=== PATIENT | female | born 1975 | race Caucasian/White ===

== ENCOUNTER → 2017-05-23 | Outpatient (CLI) | payer OTHER ==
[~2017-05-23] MED LIST: LEVO88TA3 PO; OXYB15TA12 PO; ZOLE5INJ INJ
== END | disposition home or self-care (01) ==
LOC: C.LABPBG 14:11
PROVIDERS: ATTEND Neuromusculoskeletal Medicine & OMM
DX: R30.0 Dysuria (principal)

== ENCOUNTER → 2017-07-02 | Outpatient (CLI) | payer OTHER ==
--- NOTE | 2017-07-02 13:06 | DIAGNOSTIC IMAGING REPORT ---
CT SCAN OF THE BRAIN WITHOUT IV CONTRAST CLINICAL HISTORY: Headache. Hydrocephalus. COMPARISON STUDY: Prior CT scans of the brain, most recently dated 02/09/2016. TECHNIQUE: Axial CT scan of the brain is performed from the vertex to the skull base. IV contrast was not administered for this examination. FINDINGS: A left parietal approach ventriculostomy catheter is unchanged position. The tip of the catheter terminates in the right frontal periventricular white matter. Ventricular caliber is unchanged from previous. There is no hemorrhage, mass effect, or evidence of acute territorial ischemia by CT criteria. 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 Lopez-white matter differentiation is preserved. No extra-axial fluid collection is seen. The bony orbits are grossly intact. The visualized paranasal sinuses and the mastoid air cells are clear. No destructive calvarial lesion is identified. A left parietal bebeto hole is noted. IMPRESSION: 1. No acute intracranial abnormality. 2. A ventriculostomy catheter is unchanged in position. Ventricular caliber has not significant change from 02/09/2016. 3. Additional chronic/congenital findings as above. Electronically signed by: Wily Sánchez M.D. 07/02/2017 1:04 PM Dictated Date/Time: 07/02/2017 12:59 PM
== END | disposition home or self-care (01) ==
LOC: C.CTS 12:21
PROVIDERS: ATTEND Psychiatry & Neurology Neurology
DX: G91.9 Hydrocephalus, unspecified (principal); R51 Headache

== ENCOUNTER → 2017-10-27 | Outpatient (CLI) | payer OTHER | END | disposition home or self-care (01) | LOC: C.LABPBG 13:40 | PROVIDERS: ATTEND Family Medicine | DX: E03.9 Hypothyroidism, unspecified (principal); M81.0 Age-related osteoporosis without current pathological fracture; E55.9 Vitamin D deficiency, unspecified ==

== ENCOUNTER → 2017-11-18 | Outpatient (CLI) | payer OTHER | END | disposition home or self-care (01) | LOC: C.LABPBG 14:42 | PROVIDERS: ATTEND Family Medicine | DX: R39.9 Unspecified symptoms and signs involving the genitourinary system (principal) ==

== ENCOUNTER → 2018-03-12 | Outpatient (CLI) | payer OTHER | END | disposition home or self-care (01) | LOC: C.LABPBG 11:02 | PROVIDERS: ATTEND Family Medicine | DX: R39.9 Unspecified symptoms and signs involving the genitourinary system (principal) ==

== ENCOUNTER → 2018-06-25 | Outpatient (CLI) | payer OTHER | END | disposition home or self-care (01) | LOC: C.LABSPEC 17:13 | PROVIDERS: ATTEND Urology | DX: N31.9 Neuromuscular dysfunction of bladder, unspecified (principal); N39.0 Urinary tract infection, site not specified ==

== ENCOUNTER 2025-06-08 14:04 | Inpatient (IN) ==
--- NOTE | 2025-06-08 15:09 | XRay Report ---
XR chest 1V portable CLINICAL HISTORY: Sepsis COMPARISON STUDY: 02/17/2023 FINDINGS: Heart size and pulmonary vasculature are normal. No consolidation or pleural effusion. No p neumothorax. IMPRESSION: No acute findings. ACT 112: Negative or not required by law. Electronically signed by: Hector Humphreys M.D. 06/08/2025 3:07 PM
--- NOTE | 2025-06-08 15:10 | XRay Report ---
KUB HISTORY: constipation COMPARISON STUDY: 10/13/2019 FINDINGS: There is a catheter overlying the right abdomen with the distal aspect coiled in the low pe lvis. There is a large amount of retained stool. No bowel obstruction seen. No gross free air. IMPRESSION: Large amount of retained stool. ACT 112: Negative or not required by law. The above report was generated using voice recognition software. It may contain grammatical, syntax o r spelling errors. Electronically signed by: Hector Humphreys M.D. 06/08/2025 3:09 PM
--- NOTE | 2025-06-08 15:23 | Emergency Department Note ---
Impression & Plan Sepsis, Tachycardia, Cellulitis, Spina bifida ED Provider Note NAME: JIMMY SERNA AGE: 50 SEX: F : 1975 ARRIVES VIA: Ambulance INFORMANT: [Patient] ED PROVIDER(S): [Wily Rubio MD] CHIEF COMPLAINT: Illness HISTORY OF PRESENT ILLNESS: The patient is a 50-year-old female who presents to the ER with complaints of fever, weakness. The patient does self cath. She has spina bifida. She states that yesterday she had a slight sore throat which seems to have resolved today. Today, she had a low-grade fever at 100.5. She had some slight cough and a bit of a stuffy nose. No shortness of breath, no vomiting or diarrhea. The patient states that she was unable to self cath today. There has been no sick contacts. The patient states that she does not really have any abdominal pain but, there has been no bowel movement in several days, she is worried that she could be constipated. Of note, the patient does not ambulate. She is wheelchair-bound. PMHx/PSHx/Social Hx: See Below PHYSICAL EXAM: GENERAL: Patient is in no acute distress. HEENT: No acute trauma, normocephalic atraumatic, mucous membranes moist, no nasal congestion. NECK: No stridor, no adenopathy, no meningismus, trachea is midline. LUNGS: Crackles heard in the right lower lung, no wheezing. No respiratory distress. HEART: Tachycardic, regular rhythm, no murmurs. ABDOMEN: Soft, nontender, no peritonitis. EXTREMITIES: No cyanosis. There is some wasting of the lower extremities consistent with her nonambulatory status. There is erythema and warmth to the lateral right distal foot and toes. NEUROLOGIC: Oriented x 3, no speech slur. Excellent historian. SKIN: No jaundice, no diaphoresis. DIFFERENTIAL DIAGNOSIS: Bacteremia, sepsis, UTI, cellulitis, viral illness, pneumonia, among others. EMERGENCY DEPARTMENT PROCEDURES: MEDICAL DECISION MAKING: There is no leukocytosis or concerning anemia. There is a normal platelet count. No bandemia. No coagulopathy. No renal failure or significant electrolyte abnormality. Lactic acid level is not elevated making severe sepsis less likely. There is no liver enzyme elevation. ECG shows a sinus tachycardia, no ischemia. Cardiac enzyme testing x 1 is not consistent with acute cardiac injury. Urinalysis shows potential infection, urine culture is pending. COVID, influenza and RSV test were negative. Chest x-ray did not show findings of pneumonia. KUB does show constipation. On exam, the patient was slightly febrile, she was tachycardic. She was not hypotensive. She appeared to have a right foot cellulitis. The patient did receive IV saline for hydration. She was given IV ceftriaxone as antibiotic coverage. She was given IV Tylenol. The patient has a complex past medical history. She presents tachycardic, febrile. She certainly would meet criteria for early sepsis. I do think a hospital stay would be warranted. Currently, I believe her right foot may be the source of her fever and infection, UTI is also a consideration given the urinalysis results and self cath history. I did speak with the patient and case management, the on-call hospitalist was consulted. Prior/Outside records/notes reviewed: Today's EMS notes describing her presentation and transport to this hospital. ECG per my interpretation: Indication was tachycardia. The ECG shows a sinus tachycardia with a rate of 106. There is some nonspecific ST change. There is no ST elevation, no PVCs. The QTc is 422. Continuous Cardiac Monitoring per my interpretation: An order was placed for continuous cardiac monitoring. The monitor shows a rate of 108 with sinus tachycardia. Imaging/x-ray results per my interpretation: Chest x-ray is not show pneumonia or CHF. There is no cardiomegaly. KUB shows constipation. Chronic Medical/Social conditions affecting care: Spina bifida, wheelchair- bound. Care/Management discussed with: Case management, the on-call hospitalist. Level of care consideration(s): After review of the information above and other included data: --I believe the patient requires escalation of care to admission DISPOSITION: Admission Past Med/Surg History Problem List Spina bifida (Acute) Cellulitis (Acute) Tachycardia (Acute) Sepsis (Acute) Fecal impaction Cellulitis of right lower extremity Tinnitus Hyperlipidemia Obesity Hypertension Vitamin D deficiency Allergic rhinitis Chronic mixed headache syndrome Facet arthropathy, cervical Osteoarthritis of carpometacarpal (CMC) joint of left thumb Cervical disc disease Venous insufficiency (chronic) (peripheral) Gastroesophageal reflux disease H/O ventricular shunt Ventric shunt to circ system ventriculocaval shunt Recurrent UTI takes preventative antibiotic Depression with anxiety Back pain, chronic Hydrocephalus follows with Dr Thomas Hypothyroidism Neurogenic bladder Osteoporosis Spina bifida of lumbar region Medical History New onset headache History of COVID-19 09/2020, "developed asthma" since Covid infection per patient Asthma well controlled Seizure Single episode at age 12, caused by shunt dysfunction, no issues since Hx of thyroid nodule History of spina bifida Self-catheterizes urinary bladder every 3-4 hours on her own Cholelithiasis Surgical History Hx of bilateral cataract extraction Hx laparoscopic cholecystectomy (03/05/23) Robotic Assisted Laparoscopic Cholecystectomy(Not Applicable) - Hector Han DO, FACS History of colonoscopy Hx of spinal surgery hx spina bifida repair surgery as an infant S/P ORIF (open reduction internal fixation) fracture R ankle S/P partial thyroidectomy Family History Mother Breast cancer, Onset Age: 57 Grandmother (Maternal) Dementia Father Prostate cancer Sister Breast cancer, Onset Age: 38 Other No family history of adverse response to anesthesia Denies family history of Ovarian cancer Crohn's disease Myocardial infarction Colorectal cancer Ulcerative colitis Social History Smoking Status: Never smoker Second Hand Exposure: No; Do You Dip or Chew Tobacco: No; Hx Alcohol Use: Yes Alcohol type: wine Alcohol Intake Frequency: Monthly or Less Hx Substance Use: No Preferred Language: Upper Sorbian Communication Ability: Effective Visual Impairment: No Limitations Hearing Ability: Normal Belly Roller Required: No Beliefs That Will Affect Care: None marital status: Current Living Situation: Spouse current occupational status: employed 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) Feels Safe at Home: Yes Childhood Exposure to Second-Hand Smoke: No Diet: regular Diet Comment: regular caffeine: Yes during the past year weight has: other Dental Care, Regularly: Yes Physical Activity Frequency: 3-4 Times per Week Physical Activity Frequency Comment: [facility] Seatbelt Use: always Sunscreen Use: Yes Assistive Devices: Glasses, Scooter/Electric Scooter and Wheelchair Allergies Allergies Allergy/AdvReac Type Severity Reaction Status Date / Time Penicillins Allergy Mild RASH Verified 03/21/25 13:43 amoxicillin Allergy Unknown RASH Verified 03/21/25 13:43 Home Meds Home Medications Medication Instructions Recorded Confirmed oxymetazoline 0.05 % nasal spray 2 spray intranasal Q12H PRN 03/18/23 06/08/25 (Vicks Sinex 12-Hour) Congestion albuterol sulfate 90 mcg/actuation 1 - 2 puff inhalation DIRECTED 06/08/25 06/08/25 aerosol inhaler (Ventolin HFA) PRN shortness of breath or wheezing levothyroxine 88 mcg tablet 88 mcg PO 6XWK 06/08/25 06/08/25 levothyroxine 88 mcg tablet 176 mcg PO WK 06/08/25 06/08/25 semaglutide (weight loss) 0.5 0 mg subcut Q7D 06/08/25 06/08/25 mg/0.5 mL subcutaneous pen injector Previous Rx's Medication Instructions Recorded Leg brace repair #1 ea 08/24/21 Thumb Adductor Wrist Splint #1 ea 12/18/21 cetirizine 10 mg tablet (Zyrtec) 10 mg PO DAILY #30 tabs 03/27/23 compress.stocking,knee,reg,med #2 ea 06/06/23 Hygeine Wipes #1 ea 07/10/23 Wheelchair (Powered) #1 ea 11/14/23 cholecalciferol (vitamin D3) 10 10 mcg PO BID #180 tabs 11/24/23 mcg (400 unit) tablet ibandronate 150 mg tablet 150 mg PO MONTHLY #3 tabs 07/12/24 bupropion HCl 150 mg 24 hr tablet, 150 mg PO QAM #30 tabs 01/24/25 extended release (Wellbutrin XL) nitrofurantoin macrocrystal 50 mg 50 mg PO DAILY #30 caps 01/24/25 capsule ipratropium bromide 21 mcg (0.03 2 spray intranasal BID #30 mL 02/15/25 %) nasal spray fluticasone propionate 50 2 spray intranasal DAILY #47.4 mL 02/23/25 mcg/actuation nasal spray,suspension (Allergy Relief (fluticasone)) oxybutynin chloride 15 mg 15 mg PO QAM #90 tabs 02/28/25 tablet,extended release 24 hr fluticasone furoate 200 1 inh inhalation DAILY #60 ea 03/03/25 mcg-vilanterol 25 mcg/dose inhalation powder (Breo Ellipta) famotidine 20 mg tablet 20 mg PO BID #180 tabs 03/21/25 lisinopril 20 mg tablet 20 mg PO DAILY #90 tabs 03/21/25 pantoprazole 40 mg tablet,delayed 40 mg PO QAM #90 tabs 03/29/25 release miscellaneous medical supply 1 ea miscellaneous .COMPLEX #1 ea 05/04/25 meloxicam 15 mg tablet 15 mg PO DAILY #30 tabs 05/16/25 Results & Data (ED) Vital Signs Vital Signs - 24 hr 06/08/25 14:18 06/08/25 14:31 06/08/25 14:50 Temperature 37.7 C H Temperature Source Oral Pulse Rate 112 H 108 H Pulse Rate from SpO2 Sensor Respiratory Rate 26 H Respiratory Effort / Characteristics Non-Labored Spontaneous Respiratory Depth Normal Blood Pressure 154/108 H Blood Pressure Mean 123 Blood Pressure Position Semi-fowlers Pulse Oximetry 98 99 Oxygen Delivery Method Room Air Room Air Sepsis Recent Fever Within 48 Hours Yes Sepsis New/Unexplained Change in Mental Status N/A Sepsis Action Taken by Nursing Physician Notified 06/08/25 16:15 06/08/25 16:30 06/08/25 16:45 Temperature Temperature Source Pulse Rate 108 H 100 H Pulse Rate from SpO2 Sensor 108 H 102 H Respiratory Rate 14 21 Respiratory Effort / Characteristics Respiratory Depth Blood Pressure 164/78 H 136/94 144/77 H Blood Pressure Mean 128 103 99 Blood Pressure Position Pulse Oximetry 99 94 Oxygen Delivery Method Room Air Room Air Sepsis Recent Fever Within 48 Hours Sepsis New/Unexplained Change in Mental Status Sepsis Action Taken by Nursing 06/08/25 17:00 06/08/25 17:15 06/08/25 17:45 Temperature Temperature Source Pulse Rate 94 H 96 H 97 H Pulse Rate from SpO2 Sensor 95 H 97 H 96 H Respiratory Rate 24 17 18 Respiratory Effort / Characteristics Respiratory Depth Blood Pressure 141/78 H 151/93 H 175/92 H Blood Pressure Mean 99 112 129 Blood Pressure Position Pulse Oximetry 96 99 100 Oxygen Delivery Method Room Air Room Air Room Air Sepsis Recent Fever Within 48 Hours Sepsis New/Unexplained Change in Mental Status Sepsis Action Taken by Nursing 06/08/25 18:00 06/08/25 18:15 06/08/25 18:20 Temperature Temperature Source Pulse Rate 95 H 95 H 93 H Pulse Rate from SpO2 Sensor 95 H 95 H Respiratory Rate 18 20 Respiratory Effort / Characteristics Respiratory Depth Blood Pressure 166/86 H 158/92 H Blood Pressure Mean 112 141 Blood Pressure Position Pulse Oximetry 96 95 Oxygen Delivery Method Room Air Sepsis Recent Fever Within 48 Hours Sepsis New/Unexplained Change in Mental Status Sepsis Action Taken by Nursing 06/08/25 18:30 Temperature Temperature Source Pulse Rate 91 H Pulse Rate from SpO2 Sensor 88 Respiratory Rate 23 Respiratory Effort / Characteristics Respiratory Depth Blood Pressure 160/86 H Blood Pressure Mean 110 Blood Pressure Position Pulse Oximetry 99 Oxygen Delivery Method Room Air Sepsis Recent Fever Within 48 Hours Sepsis New/Unexplained Change in Mental Status Sepsis Action Taken by [facility] Medications Current Medication List: was personally reviewed by me Laboratory Data Attestation: I reviewed the patient's lab results. 06/08/25 15:51 06/08/25 15:51 Lab Results 06/08/25 06/08/25 06/08/25 Range/Units 14:55 15:51 16:00 WBC 7.10 (4.8-10.8) K/ul RBC 4.68 (4.20-5.40) M/uL Hgb 13.1 (12.0-16.0) g/dl Hct 39.7 (37.0-47.0) % MCV 84.8 (80.0-100.0) fL MCH 28.0 (25.0-34.0) pg MCHC 33.0 (32.0-36.0) g/dL RDW Std Deviation 42.3 (36.4-46.3) fL RDW Coeff of Real 13.5 (11.5-14.5) % Plt Count 248 (130-400) K/uL MPV 10.0 (9.4-12.4) fL Immature Gran % (Auto) 0.4 % Neut % (Auto) 80.6 % Lymph % (Auto) 9.3 % Hill % (Auto) 8.7 % Eos % (Auto) 0.4 % Baso % (Auto) 0.6 % Neut # (Auto) 5.72 (1.40-6.50) K/uL Lymph # (Auto) 0.66 L (1.20-3.40) K/uL Hill # (Auto) 0.62 H (0.11-0.59) K/uL Eos # (Auto) 0.03 (0.00-0.50) K/uL Baso # (Auto) 0.04 (0.00-0.20) K/uL Immature Gran # (Auto) 0.03 (0.01-0.20) K/uL PT 10.8 (9.0-12.0) Seconds INR 1.0 (0.9-1.1) APTT 34 H (21-31) Seconds PTT Ratio 1.3 Sodium 133 L (136-145) mmol/L Potassium 3.8 (3.5-5.1) mmol/L Chloride 102 (98-107) mmol/L Carbon Dioxide 22 (21-32) mmol/L Anion Gap 9 (3-11) BUN 13 (6-23) mg/dl Creatinine 0.58 L (0.6-1.2) mg/dl Est Cr Clr Drug Dosing 102.7 ml/min eGFR 110.18 BUN/Creatinine Ratio 22.4 H (10-20) Glucose 107 H (70-99(Fasting)) mg/dl Lactate 1.0 (0.4-2.0) mmol/L Calcium 9.0 (8.6-10.3) mg/dl Magnesium 2.1 (1.7-2.4) mg/dl Total Bilirubin 0.6 (0.2-1.0) mg/dl Direct Bilirubin 0.1 (0-0.2) mg/dl AST 27 (13-39) U/L ALT 32 (7-52) U/L Alkaline Phosphatase 98 (34-104) U/L Troponin I High Sens 9.2 (0-14) pg/ml Total Protein 7.3 (6.0-8.3) gm/dl Albumin 4.3 (3.4-5.0) gm/dl Procalcitonin 0.09 (0-0.5) ng/ml Urine Color Yellow Urine Appearance Clear (Clear) Urine pH 5.5 (4.5-7.5) Ur Specific [place] 1.015 (1.000-1.030) Urine Protein 1+ H (Negative) Urine Glucose (UA) Negative (Negative) Urine Ketones 1+ H (Negative) Urine Blood Negative (Negative) Urine Nitrite Positive A (Negative) Urine Bilirubin Negative (Negative) Urine Urobilinogen Negative (Negative) Ur Leukocyte Esterase Trace H (Negative) Urine WBC (Auto) 0-5 (0-5) /hpf Urine RBC (Auto) 0-2 (0-2) /hpf U Hyaline Cast (Auto) 0-2 (0-2) /lpf U Epithel Cells (Auto) 3-5 H (0-2) /hpf Urine Bacteria (Auto) 2+ H (None Seen) Urine Comment SARS-CoV-2 (PCR) NEGATIVE (Negative) Influenza Type A (PCR) Negative (Neg) Influenza Type B (PCR) Negative (Neg) RSV (RT-PCR) Negative (Neg) Administered Medications Discontinued Medications Sodium Chloride (Nss) 1,000 mls @ 999 mls/hr IV .Q1H1M SVETLANA Stop: 06/08/25 17:00 Last Infusion: 06/08/25 17:51 Dose: Infused Documented By: Admin: 06/08/25 16:48 Dose: 999 mls/hr Documented By: Infusion: 06/08/25 16:44 Dose: Infused Documented By: Admin: 06/08/25 15:41 Dose: 999 mls/hr Documented By: MEGHNA Acetaminophen (Ofirmev) 1,000 mg in 100 mls @ 400 mls/hr IV NOW STA Stop: 06/08/25 15:00 Last Infusion: 06/08/25 16:03 Dose: Infused Documented By: Admin: 06/08/25 15:48 Dose: 400 mls/hr Documented By: Ceftriaxone Sodium (Rocephin) 2,000 mg in 50 mls @ 100 mls/hr IV NOW STA Stop: 06/08/25 17:14 Last Infusion: 06/08/25 17:51 Dose: Infused Documented By: Admin: 06/08/25 17:16 Dose: 100 mls/hr Documented By: Imaging Data Radiologist's Impression: Chest X-Ray 06/08/25 14:46 XR chest 1V portable CLINICAL HISTORY: Sepsis COMPARISON STUDY: 02/17/2023 FINDINGS: Heart size and pulmonary vasculature are normal. No consolidation or pleural effusion. No pneumothorax. IMPRESSION: No acute findings. ACT 112: Negative or not required by law. Electronically signed by: Hector Humphreys M.D. 06/08/2025 3:07 PM KUB X-Ray 06/08/25 14:46 KUB HISTORY: constipation COMPARISON STUDY: 10/13/2019 FINDINGS: There is a catheter overlying the right abdomen with the distal aspect coiled in the low pelvis. There is a large amount of retained stool. No bowel obstruction seen. No gross free air. IMPRESSION: Large amount of retained stool. ACT 112: Negative or not required by law. The above report was generated using voice recognition software. It may contain grammatical, syntax or spelling errors. Electronically signed by: Hector Humphreys M.D. 06/08/2025 3:09 PM Discharge Plan Visit Data Chief Complaint: Illness Stated Complaint: ILLNESS ED Provider: Wily Rubio Discharge Problem: Sepsis, Tachycardia, Cellulitis, Spina bifida Patient Disposition: Admitted As Inpatient Condition: Fair Forms Stand Alone Forms: [facility], Important Visit Information Prescriptions Prescriptions: No Action (DME) Thumb Adductor Wrist Splint See Rx Instructions .Route .MEDSUPPLY Qty: 1 0RF Rx Instructions: As directed cetirizine [Zyrtec] 10 mg tablet 10 mg PO DAILY Qty: 30 0RF Patient Comments: Unable to verify med w/ patient at this date/time. (DME) compress.stocking,knee,reg,med Misc See Rx Instructions .ROUTE .MEDSUPPLY Qty: 2 0RF Rx Instructions: Medium compression 20-30mmHG; Dx: I87.2 (DME) Hygeine Wipes See Rx Instructions .Route .MEDSUPPLY Qty: 1 3RF Rx Instructions: Use as directed (DME) Wheelchair (Powered) Device See Rx Instructions .Route Qty: 1 0RF Rx Instructions: motorized wheelchair repairs. cholecalciferol (vitamin D3) 10 mcg (400 unit) tablet 10 mcg PO BID Qty: 180 3RF Patient Comments: Unable to verify med w/ patient at this date/time. nitrofurantoin macrocrystal 50 mg capsule 50 mg PO DAILY Qty: 30 5RF Patient Comments: Last filled 04/25/25 x30 day supply Rx Instructions: must administer with a meal/food bupropion HCl [Wellbutrin XL] 150 mg tablet extended release 24 hr 150 mg PO QAM Qty: 30 5RF Patient Comments: Last filled 04/26/25 x30 day supply ipratropium bromide 21 mcg (0.03 %) spray,non-aerosol 2 spray intranasal BID Qty: 30 2RF Rx Instructions: administer into each nostril fluticasone propionate [Allergy Relief (fluticasone)] 50 mcg/actuation spray,suspension 2 spray INTNAS DAILY Qty: 47.4 5RF Rx Instructions: administer into each nostril oxybutynin chloride 15 mg tablet extended release 24hr 15 mg PO QAM Qty: 90 1RF fluticasone furoate-vilanterol [Breo Ellipta] 200-25 mcg/dose blister with device 1 inh inhalation DAILY Qty: 60 5RF famotidine 20 mg tablet 20 mg PO BID Qty: 180 1RF lisinopril 20 mg tablet 20 mg PO DAILY Qty: 90 2RF pantoprazole 40 mg tablet,delayed release (DR/EC) 40 mg PO QAM Qty: 90 1RF Patient Comments: Last filled 04/26/25 x30 day supply miscellaneous medical supply [facility] 1 ea miscellaneous .COMPLEX Qty: 1 0RF Rx Instructions: Motorized wheel chair evaluate and repair meloxicam 15 mg tablet 15 mg PO DAILY Qty: 30 2RF Patient Comments: Last filled 04/26/25 x30 day supply ([facility]) Leg brace repair See Rx Instructions .Route .MEDSUPPLY Qty: 1 0RF Rx Instructions: As directed oxymetazoline [Vicks Sinex 12-Hour] 0.05 % spray,non-aerosol 2 spray intranasal Q12H PRN (Reason: Congestion) ibandronate 150 mg tablet 150 mg PO MONTHLY Qty: 3 4RF levothyroxine 88 mcg tablet 176 mcg PO WK Patient Comments: Take 176mcg (88mcg x 2) on Sundays Rx Instructions: Take 176mcg (88mcg x 2) on Sundays levothyroxine 88 mcg tablet 88 mcg PO 6XWK Patient Comments: Take 88mcg on Fri//Fri//Fri/Sat Rx Instructions: 88mcg PO Daily M,T,W,T,F,S and 176mcg Friday 1 tablet daily on M,T,W,T,F,S and 2 tablets on Friday albuterol sulfate [Ventolin HFA] 90 mcg/actuation HFA aerosol inhaler 1 - 2 puff inhalation DIRECTED PRN (Reason: shortness of breath or wheezing) Patient Comments: Unable to verify med w/ patient at this date/time. Rx Instructions: 1-2 puffs inhalation 1 puff INH every 4-6 hrs; PRN; Wegovy 0.5 mg/0.5 mL pen injector 0 mg subcut Q7D Patient Comments: Unable to verify med w/ patient at this date/time. Referrals Referrals: Hallie Lockhart DO [Primary Care Provider] - Discharge Problem: Sepsis Qualifiers: Sepsis type: sepsis due to unspecified organism Sepsis acute organ dysfunction status: without acute organ dysfunction Qualified Code(s): A41.9 - Sepsis, unspecified organism Cellulitis Qualifiers: Site of cellulitis: extremity Site of cellulitis of extremity: lower extremity Laterality: right Qualified Code(s): L03.115 - Cellulitis of right lower limb Spina bifida Qualifiers: Spinal region: unspecified Presence of hydrocephalus: unspecified hydrocephalus presence Qualified Code(s): Q05.9 - Spina bifida, unspecified
[2025-06-08] MEDS: SODIUM CHLORIDE 0.9% 1,000 ML IV SCH (15:41)
[2025-06-08] MEDS: ACETAMINOPHEN 1,000 MG/100 ML VIAL IV STA (15:48)
[2025-06-08 16:00] LABS: Influenza A virus by PCR Negative (Neg); Influenza B virus by PCR Negative (Neg); SARS CoV2 RNA(COVID-19) Ceph NEGATIVE (Negative)
[2025-06-08 16:11] LABS: Hematocrit (blood only) 39.7 % (37.0-47.0); Hemoglobin 13.1 g/dl (12.0-16.0); Immature Granulocytes # (auto) 0.03 K/uL (0.01-0.20); Immature Granulocytes % (auto) 0.4 %; Mean Corpuscular Hemoglobin 28.0 pg (25.0-34.0); Mean Corpuscular Volume 84.8 fL (80.0-100.0); Platelet Count 248 K/uL (130-400); RDW Standard Deviation 42.3 fL (36.4-46.3); Red Blood Count 4.68 M/uL (4.20-5.40); White Blood Count 7.10 K/ul (4.8-10.8)
[2025-06-08 16:21] LABS: Appearance Urine Clear (Clear); Bacteria Urine Automated 2+ (None Seen); Cast Urine Automated 0-2 /lpf (0-2); Glucose Urine UA Negative (Negative); RBC Urine Automated 0-2 /hpf (0-2); WBC Urine Automated 0-5 /hpf (0-5)
[2025-06-08 16:30] LABS: Alanine Aminotransferase 32.0 U/L (7-52); Alkaline Phosphatase 98.0 U/L (34-104); Anion Gap 9.0 (3-11); Bilirubin,Total 0.6 mg/dl (0.2-1.0); Blood Urea Nitrogen 13.0 mg/dl (6-23); Calcium 9.0 mg/dl (8.6-10.3); Carbon Dioxide 22.0 mmol/L (21-32); Chloride 102.0 mmol/L (98-107); Creatinine Clr Calc Pharmacy 102.7 ml/min; Glucose 107.0 mg/dl (70-99(Fasting)); Magnesium 2.1 mg/dl (1.7-2.4); Potassium 3.8 mmol/L (3.5-5.1); Sodium 133.0 mmol/L (136-145); Total Protein 7.3 gm/dl (6.0-8.3)
[2025-06-08 16:37] LABS: INR 1.0 (0.9-1.1); Partial Thromboplastin Time 34 Seconds (21-31); Prothrombin Time 10.8 Seconds (9.0-12.0)
[2025-06-08] MEDS: cefTRIAXone SODIUM 2,000 MG/50 ML BAG IV STA (17:16)
--- NOTE | 2025-06-08 18:01 | History & Physical Report ---
Date of Service June 08, 2025 Assessment & Plan (1) H/O ventricular shunt: (2) Recurrent UTI: (3) Hydrocephalus: (4) Neurogenic bladder: (5) Spina bifida of lumbar region: (6) Hypertension: (7) Cellulitis of right lower extremity: (8) Fecal impaction: Plan This is a 50-year-old female with spina bifida, neurogenic bladder who self catheterizes, hypertension, GERD, hypothyroidism who presents with fever. Urinalysis suggestive of UTI. She has a mild right foot cellulitis. Abdominal x-ray suggestive of fecal impaction. She presents with early sepsis. #Early sepsis She presented with fever and tachycardia No hypotension Sources could be possibly UTI versus right lower extremity cellulitis She self catheterizes and thus has a higher propensity to complicated UTI I will treat her with Bactrim Monitor urine culture and blood culture She already got IV fluid in the emergency room She is not hypotensive. Will hold off on further IV fluids #Complicated UTI Urinalysis is suggestive Patient presented with early sepsis Will treat with p.o. Bactrim #Right lower extremity cellulitis Patient says that she had an injury leading to an open fracture several years ago. The laceration was sutured but she was left with a open gap that often drains. Her right foot and leg is slightly inflamed today. Appears cellulitic. Will treat her with Bactrim that we will treat both UTI and cellulitis Check a venous duplex ultrasound to rule out DVT #Fecal impaction This was seen on KUB The patient says that she has been constipated for some time and she was unable to self catheterize which could be because of the fecal impaction We will treat with MiraLAX and Colace. May need Dulcolax suppository or enema if no success #Hypertension Blood pressure slightly elevated Resume lisinopril #Hypothyroidism Continue Synthroid VTE prophylaxis: Lovenox Full code History of Present Illness Chief Complaint: Fever and weakness Primary Care Provider: Hallie Lockhart, This is a 50-year-old female with spina bifida, wheelchair-bound, neurogenic bladder for which she self catheterizes, hypertension, GERD, hypothyroidism presents with fever and weakness today. The patient stated that she had some sore throat, cough and stuffy nose yesterday but she has issues with allergies. She also was unable to self catheterize today and so was concerned about a UTI. She denied chest pain, shortness of breath, headache. In the ER, she was noted to have a right foot redness and swelling along with mild drainage which was concerning for cellulitis. She stated that years ago, she had bumped her right pinky toe that caused an open fracture. The opening was sutured up but there remained a gap which often drains. She does not complain of any pain in the right foot because she does not have any sensation in her legs bilaterally. Visibly, she did not notice any difference either. In the ER she was noted to have a fever. She had some screening tests done that revealed unremarkable CBC and BMP, negative COVID and flu. Her urinalysis was suggestive of UTI with positive nitrites trace leuk esterase, no WBCs with 2+ bacteria. Her chest x-ray was negative. Her KUB showed findings suggestive of fecal impaction/constipation. She is being admitted for early sepsis and concern for UTI, right lower extremity cellulitis Allergies Allergy/AdvReac Type Severity Reaction Status Date / Time Penicillins Allergy Mild RASH Verified 03/21/25 13:43 amoxicillin Allergy Unknown RASH Verified 03/21/25 13:43 Home Medications Medication Instructions Recorded Confirmed Type Leg brace repair #1 ea 08/24/21 03/21/25 Rx Thumb Adductor Wrist Splint #1 ea 12/18/21 03/21/25 Rx oxymetazoline 0.05 % nasal spray 2 spray intranasal Q12H PRN 03/18/23 03/21/25 History (Vicks Sinex 12-Hour) cetirizine 10 mg tablet (Zyrtec) 10 mg PO DAILY #30 tabs 03/27/23 03/21/25 Rx compress.stocking,knee,reg,med #2 ea 06/06/23 03/21/25 Rx Hygeine Wipes #1 ea 07/10/23 03/21/25 Rx Wheelchair (Powered) #1 ea 11/14/23 03/21/25 Rx albuterol sulfate 90 mcg/actuation See Rx Instructions inhalation 11/19/23 03/21/25 Rx aerosol inhaler (Ventolin HFA) .COMPLEX PRN shortness of breath or wheezing #18 grams cholecalciferol (vitamin D3) 10 10 mcg PO BID #180 tabs 11/24/23 03/21/25 Rx mcg (400 unit) tablet ibandronate 150 mg tablet 150 mg PO MONTHLY #3 tabs 07/12/24 06/08/25 Rx bupropion HCl 150 mg 24 hr tablet, 150 mg PO QAM #30 tabs 01/24/25 03/21/25 Rx extended release (Wellbutrin XL) nitrofurantoin macrocrystal 50 mg 50 mg PO DAILY #30 caps 01/24/25 03/21/25 Rx capsule ipratropium bromide 21 mcg (0.03 2 spray intranasal BID #30 mL 02/15/25 03/21/25 Rx %) nasal spray fluticasone propionate 50 2 spray intranasal DAILY #47.4 mL 02/23/25 06/08/25 Rx mcg/actuation nasal spray,suspension (Allergy Relief (fluticasone)) oxybutynin chloride 15 mg 15 mg PO QAM #90 tabs 02/28/25 06/08/25 Rx tablet,extended release 24 hr fluticasone furoate 200 1 inh inhalation DAILY #60 ea 03/03/25 03/21/25 Rx mcg-vilanterol 25 mcg/dose inhalation powder (Breo Ellipta) famotidine 20 mg tablet 20 mg PO BID #180 tabs 03/21/25 06/08/25 Rx lisinopril 20 mg tablet 20 mg PO DAILY #90 tabs 03/21/25 06/08/25 Rx pantoprazole 40 mg tablet,delayed 40 mg PO QAM #90 tabs 03/29/25 Rx release semaglutide (weight loss) 0.5 0.5 mg (0.5 mL) subcut Q7D 4 weeks 03/31/25 Rx mg/0.5 mL subcutaneous pen injector #2 mL miscellaneous medical supply 1 ea miscellaneous .COMPLEX #1 ea 05/04/25 Rx meloxicam 15 mg tablet 15 mg PO DAILY #30 tabs 05/16/25 Rx levothyroxine 88 mcg tablet 88 mcg PO 6XWK 06/08/25 06/08/25 History levothyroxine 88 mcg tablet 176 mcg PO WK 06/08/25 06/08/25 History Past Med/Surg History Problem List (Updated 06/08/25 @ 18:06 by Jahaira Kirk MD) Fecal impaction Cellulitis of right lower extremity Tinnitus Hyperlipidemia Obesity Hypertension Vitamin D deficiency Allergic rhinitis Chronic mixed headache syndrome Facet arthropathy, cervical Osteoarthritis of carpometacarpal (CMC) joint of left thumb Cervical disc disease Venous insufficiency (chronic) (peripheral) Gastroesophageal reflux disease H/O ventricular shunt Ventric shunt to circ system ventriculocaval shunt Recurrent UTI takes preventative antibiotic Depression with anxiety Back pain, chronic Hydrocephalus follows with Dr Thomas Hypothyroidism Neurogenic bladder Osteoporosis Spina bifida of lumbar region Medical History New onset headache History of COVID-19 09/2020, "developed asthma" since Covid infection per patient Asthma well controlled Seizure Single episode at age 12, caused by shunt dysfunction, no issues since Hx of thyroid nodule History of spina bifida Self-catheterizes urinary bladder every 3-4 hours on her own Cholelithiasis Surgical History Hx of bilateral cataract extraction Hx laparoscopic cholecystectomy (03/05/23) Robotic Assisted Laparoscopic Cholecystectomy(Not Applicable) - Hector Han DO, FACS History of colonoscopy Hx of spinal surgery hx spina bifida repair surgery as an S/P ORIF (open reduction internal fixation) fracture R ankle S/P partial thyroidectomy Family History Mother Breast cancer, Onset Age: 57 Grandmother (Maternal) Dementia Father Prostate cancer Sister Breast cancer, Onset Age: 38 Other No family history of adverse response to anesthesia Denies family history of Ovarian cancer Crohn's disease Myocardial infarction Colorectal cancer Ulcerative colitis Social History Smoking Status: Never smoker Second Hand Exposure: No; Do You Dip or Chew Tobacco: No; Hx Alcohol Use: Yes Alcohol type: wine Alcohol Intake Frequency: Monthly or Less Hx Substance Use: No Preferred Language: Mosotho Communication Ability: Effective Visual Impairment: No Limitations Hearing Ability: Normal Carpenter Mine Required: No Beliefs That Will Affect Care: None marital status: Current Living Situation: Spouse current occupational status: employed 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 Pleasant and smiling Heart: S1, S2/regular rate and rhythm, no murmur rubs or gallops Lungs: Clear to auscultation bilaterally. Normal effort Abdomen: Soft/nontender/nondistended. No hepatosplenomegaly Extremities: No clubbing/cyanosis. Her legs show signs of contractures. Her right foot and calf is slightly red. There is of very small opening in the right pinky toe with some drainage that does not appear grossly purulent. Behavior: Appropriate, cooperative Results & Data Results & Data Vital Signs (Past 12 Hours) Vital Signs Temp Pulse Resp BP Pulse Ox O2 Del Method 06/08/25 17:45 97 H 18 175/92 H 100 Room Air 06/08/25 17:15 96 H 17 151/93 H 99 Room Air 06/08/25 17:00 94 H 24 141/78 H 96 Room Air 06/08/25 16:45 100 H 21 144/77 H 94 Room Air 06/08/25 16:30 136/94 06/08/25 16:15 108 H 14 164/78 H 99 Room Air 06/08/25 14:50 99 Room Air 06/08/25 14:31 108 H 06/08/25 14:18 37.7 C H 112 H 26 H 154/108 H 98 Room Air Laboratory Results Abnormal lab results 06/08/25 06/08/25 Range/Units 15:51 16:00 Lymph # (Auto) 0.66 L (1.20-3.40) K/uL Henry # (Auto) 0.62 H (0.11-0.59) K/uL APTT 34 H (21-31) Seconds Sodium 133 L (136-145) mmol/L Creatinine 0.58 L (0.6-1.2) mg/dl BUN/Creatinine Ratio 22.4 H (10-20) Glucose 107 H (70-99(Fasting)) mg/dl Urine Protein 1+ H (Negative) Urine Ketones 1+ H (Negative) Urine Nitrite Positive A (Negative) Ur Leukocyte Esterase Trace H (Negative) U Epithel Cells (Auto) 3-5 H (0-2) /hpf Urine Bacteria (Auto) 2+ H (None Seen) Diagnostic Findings Chest X-Ray 06/08/25 14:46 XR chest 1V portable CLINICAL HISTORY: Sepsis COMPARISON STUDY: 02/17/2023 FINDINGS: Heart size and pulmonary vasculature are normal. No consolidation or pleural effusion. No pneumothorax. IMPRESSION: No acute findings. ACT 112: Negative or not required by law. Electronically signed by: Hector Humphreys M.D. 06/08/2025 3:07 PM KUB X-Ray 06/08/25 14:46 KUB HISTORY: constipation COMPARISON STUDY: 10/13/2019 FINDINGS: There is a catheter overlying the right abdomen with the distal aspect coiled in the low pelvis. There is a large amount of retained stool. No bowel obstruction seen. No gross free air. IMPRESSION: Large amount of retained stool. ACT 112: Negative or not required by law. The above report was generated using voice recognition software. It may contain grammatical, syntax or spelling errors. Electronically signed by: Hector Humphreys M.D. 06/08/2025 3:09 PM PG Care Time/CCT Total # of Minutes Spent Total Time Spent with Patient: Total time spent is greater than 50% in coordination of care (as documented) at patient's floor/unit and/or counseling patient: Coding Level of Care Code 89854 INT INP/OBS CARE 2/55MIN Diagnoses H/O ventricular shunt Recurrent UTI N39.0 Hydrocephalus G91.9 Neurogenic bladder N31.9 Spina bifida of lumbar region with hydrocephalus Q05.2 Presence of hydrocephalus: with hydrocephalus Hypertension I10 Cellulitis of right lower extremity L03.115 Fecal impaction K56.41 (5) Spina bifida of lumbar region Presence of hydrocephalus: with hydrocephalus Qualified Code(s): Q05.2 - Lumbar spina bifida with hydrocephalus
--- NOTE | 2025-06-08 19:52 | Ultrasound Report ---
Clinical History: Redness and swelling Technique: Venous ultrasound evaluation was performed utilizing grayscale, color Doppler and wave form evaluation. Images were also obtained with and without compression Findings: The right common femoral, superficial femoral, popliteal, and visualized calf veins demonstrate normal anechoic lumens with full compressibility. Normal flow is seen on color Doppler images. Expected waveforms were produced with augmentation maneuvers Impression: No evidence of right leg deep venous thrombosis Electronically signed by Cruz Hoyos 06-08-2025 7:52 PM
[2025-06-08] MEDS ORDERED: ONDANSETRON INJ 2 MG/ML 2 ML VIAL IV PRN (21:25)
[2025-06-08] MEDS ORDERED: Nursing to Pharmacy Communication SCH (22:15)
[2025-06-08] MEDS: DOCUSATE SODIUM 100 MG CAP PO SCH (22:32)
[2025-06-08] MEDS: SULFAMETHOXAZOLE/TRIMETHOPRIM DS 800/160MG TAB PO SCH (22:32)
[2025-06-08] MEDS: FAMOTIDINE 20 MG TAB PO SCH (22:32)
[2025-06-08] MEDS: POLYETHYLENE (MIRALAX) 17 GM PACK PO SCH (22:32)
[2025-06-08] MEDS: ACETAMINOPHEN 325 MG TAB PO PRN (22:47)
[2025-06-09] MEDS: LEVOTHYROXINE SODIUM 88 MCG TABLET PO SCH (06:09)
[2025-06-09 06:53] LABS: Hematocrit (blood only) 33.9 % (37.0-47.0); Hemoglobin 11.5 g/dl (12.0-16.0); Mean Corpuscular Hemoglobin 28.9 pg (25.0-34.0); Mean Corpuscular Volume 85.2 fL (80.0-100.0); Platelet Count 209 K/uL (130-400); RDW Standard Deviation 42.4 fL (36.4-46.3); Red Blood Count 3.98 M/uL (4.20-5.40); White Blood Count 5.91 K/ul (4.8-10.8)
[2025-06-09 07:38] LABS: Anion Gap 7 (3-11); Blood Urea Nitrogen 12 mg/dl (6-23); Calcium 7.9 mg/dl (8.6-10.3); Carbon Dioxide 20 mmol/L (21-32); Chloride 108 mmol/L (98-107); Creatinine Clr Calc Pharmacy 113.9 ml/min; Glucose 104 mg/dl (70-99(Fasting)); Sodium 135 mmol/L (136-145)
[2025-06-09] MEDS: ENOXAPARIN INJ 40 MG/0.4 ML SYR SQ SCH (08:44)
--- NOTE | 2025-06-09 11:33 | Fluoroscopy Report ---
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 Patient wa s positioned prone on the fluoroscopy table and timeout was performed. The low back was prepped and d raped in standard sterile fashion. 1% lidocaine was used for local anesthesia. Under intermittent flu oroscopic guidance, a 22-gauge spinal needle was advanced to the spinal canal at L3-4. Inner stylette was removed. No CSF was obtained despite multiple repositionings of the needle. The patient was unco mfortable on the fluoroscopy table and did not consent to another attempt. Needle was removed. Hemost asis was obtained with manual compression. Sterile dressing was applied. IMPRESSION: Unsuccessful attempted lumbar puncture at L3-4. ACT 112: Negative or not required by law. Electronically signed by: Hector Humphreys M.D. 06/09/2025 11:31 AM
--- NOTE | 2025-06-09 13:31 | Hospitalist Progress Note ---
Date of Service June 09, 2025 Assessment & Plan (1) H/O ventricular shunt: (2) Recurrent UTI: (3) Hydrocephalus: (4) Neurogenic bladder: (5) Spina bifida of lumbar region: (6) Hypertension: (7) Cellulitis of right lower extremity: (8) Fecal impaction: Plan This is a 50-year-old female with spina bifida, neurogenic bladder who self catheterizes, hypertension, GERD, hypothyroidism who presents with fever. Urinalysis suggestive of UTI. She has a mild right foot cellulitis. Abdominal x-ray suggestive of fecal impaction. She presents with early sepsis. #Early sepsis She presented with fever and tachycardia No hypotension Sources could be possibly UTI versus right lower extremity cellulitis versus BUDDHIST MONK shunt infection She self catheterizes and thus has a higher propensity to complicated UTI I had started her on Bactrim that will treat both UTI and right lower extremity cellulitis However she continued to spike fevers and remained tachycardic Urine culture growing Klebsiella, sensitivities pending To explore the possibility of a BUDDHIST MONK shunt infection, CT head and CT abdomen were ordered. Pending. LP was attempted once. Another LP will be attempted later today. Consulted infectious disease I agree with broadening antibiotic coverage per infectious disease but would hold off until he is CSF obtained #Complicated UTI Urinalysis is suggestive Patient presented with early sepsis Will treat with p.o. Bactrim Urine culture growing Klebsiella #Right lower extremity cellulitis Patient says that she had an injury leading to an open fracture several years ago. The laceration was sutured but she was left with a open gap that often drains. Her right foot and leg is slightly inflamed today. Appears cellulitic. Started her on Bactrim that we will treat both UTI and cellulitis DVT ruled out #Fecal impaction This was seen on KUB The patient says that she has been constipated for some time and she was unable to self catheterize which could be because of the fecal impaction We will treat with MiraLAX and Colace. May need Dulcolax suppository or enema if no success Patient says that she had a bowel movement last night but does not believe she evacuated enough. Advised her to keep taking laxatives #Hypertension Resume lisinopril #Hypothyroidism Continue Synthroid VTE prophylaxis: Lovenox Full code Admission and Anticipated Discharge Date Admission Date: June 08, 2025 Subjective Patient has continued to spike fevers overnight despite being on p.o. Bactrim. She is also tachycardic. Possibility of BUDDHIST MONK shunt infection entertained. Patient denies any abdominal pain. CT head and CT abdomen ordered. LP ordered for CSF culture. LP was attempted, dry tap. She declined a second attempt initially. Upon speaking to me, she is now agreeable to a second attempt of lumbar puncture by IR Review of Systems Review of Systems: All systems reviewed & are unremarkable except as noted in Subjective Physical Exam Physical Exam: General: Awake, conversant. Pleasant and smiling Heart: S1, S2/regular rate and rhythm, no murmur rubs or gallops Lungs: Clear to auscultation bilaterally. Normal effort Abdomen: Soft/nontender/nondistended. No hepatosplenomegaly Extremities: No clubbing/cyanosis. Her legs show signs of contractures. Her right foot and calf is slightly red. There is of very small opening in the righ t pinky toe with some drainage that does not appear grossly purulent. Behavior: Appropriate, cooperative Results & Data Results & Data Vital Signs (Past 12 Hours) Vital Signs Temp Pulse Resp BP Pulse Ox O2 Del Method 06/09/25 09:31 Room Air 06/09/25 07:05 38.1 C H 109 H 16 129/80 99 Room Air 06/09/25 04:18 39.2 C H Laboratory Results Abnormal lab results 06/08/25 06/08/25 06/09/25 Range/Units 15:51 16:00 06:28 RBC 3.98 L (4.20-5.40) M/uL Hgb 11.5 L (12.0-16.0) g/dl Hct 33.9 L (37.0-47.0) % Lymph # (Auto) 0.66 L (1.20-3.40) K/uL Winn # (Auto) 0.62 H (0.11-0.59) K/uL APTT 34 H (21-31) Seconds Sodium 133 L 135 L (136-145) mmol/L Potassium (3.5-5.1) mmol/L Chloride 108 H (98-107) mmol/L Carbon Dioxide 20 L (21-32) mmol/L Creatinine 0.58 L 0.53 L (0.6-1.2) mg/dl BUN/Creatinine Ratio 22.4 H 22.6 H (10-20) Glucose 107 H 104 H (70-99(Fasting)) mg/dl Calcium 7.9 L (8.6-10.3) mg/dl Urine Protein 1+ H (Negative) Urine Ketones 1+ H (Negative) Urine Nitrite Positive A (Negative) Ur Leukocyte Esterase Trace H (Negative) U Epithel Cells (Auto) 3-5 H (0-2) /hpf Urine Bacteria (Auto) 2+ H (None Seen) 06/09/25 Range/Units 08:50 RBC (4.20-5.40) M/uL Hgb (12.0-16.0) g/dl Hct (37.0-47.0) % Lymph # (Auto) (1.20-3.40) K/uL Winn # (Auto) (0.11-0.59) K/uL APTT (21-31) Seconds Sodium (136-145) mmol/L Potassium 3.3 L (3.5-5.1) mmol/L Chloride (98-107) mmol/L Carbon Dioxide (21-32) mmol/L Creatinine (0.6-1.2) mg/dl BUN/Creatinine Ratio (10-20) Glucose (70-99(Fasting)) mg/dl Calcium (8.6-10.3) mg/dl Urine Protein (Negative) Urine Ketones (Negative) Urine Nitrite (Negative) Ur Leukocyte Esterase (Negative) U Epithel Cells (Auto) (0-2) /hpf Urine Bacteria (Auto) (None Seen) Diagnostic Findings Chest X-Ray 06/08/25 14:46 XR chest 1V portable CLINICAL HISTORY: Sepsis COMPARISON STUDY: 02/17/2023 FINDINGS: Heart size and pulmonary vasculature are normal. No consolidation or pleural effusion. No pneumothorax. IMPRESSION: No acute findings. ACT 112: Negative or not required by law. Electronically signed by: Hector Humphreys M.D. 06/08/2025 3:07 PM KUB X-Ray 06/08/25 14:46 KUB HISTORY: constipation COMPARISON STUDY: 10/13/2019 FINDINGS: There is a catheter overlying the right abdomen with the distal aspect coiled in the low pelvis. There is a large amount of retained stool. No bowel obstruction seen. No gross free air. IMPRESSION: Large amount of retained stool. ACT 112: Negative or not required by law. The above report was generated using voice recognition software. It may contain grammatical, syntax or spelling errors. Electronically signed by: Hector Humphreys M.D. 06/08/2025 3:09 PM Venous Doppler Study 06/08/25 17:52 Clinical History: Redness and swelling Technique: Venous ultrasound evaluation was performed utilizing grayscale, color Doppler and wave form evaluation. Images were also obtained with and without compression Findings: The right common femoral, superficial femoral, popliteal, and visualized calf veins demonstrate normal anechoic lumens with full compressibility. Normal flow is seen on color Doppler images. Expected waveforms were produced with augmentation maneuvers Impression: No evidence of right leg deep venous thrombosis Electronically signed by Cruz Hoyos 06-08-2025 7:52 PM Lumbar Puncture 06/09/25 08:59 IR lumbar puncture diagnostic CLINICAL HISTORY: fever, Pt has BUDDHIST MONK shunt Fluoroscopy time: 10 seconds COMPARISON STUDY: Lumbar spine CT of 02/20/2024 Technique: After the procedure was discussed and questions answered, consent was obtained. Patient was positioned prone on the fluoroscopy table and timeout was performed. The low back was prepped and draped in standard sterile fashion. 1% lidocaine was used for local anesthesia. Under intermittent fluoroscopic guidance, a 22-gauge spinal needle was advanced to the spinal canal at L3-4. Inner stylette was removed. No CSF was obtained despite multiple repositionings of the needle. The patient was uncomfortable on the fluoroscopy table and did not consent to another attempt. Needle was removed. Hemostasis was obtained with manual compression. Sterile dressing was applied. IMPRESSION: Unsuccessful attempted lumbar puncture at L3-4. ACT 112: Negative or not required by law. Electronically signed by: Hector Humphreys M.D. 06/09/2025 11:31 AM PG Care Time/CCT Total # of Minutes Spent Total Time Spent with Patient: Total time spent is greater than 50% in coordination of care (as documented) at patient's floor/unit and/or counseling patient: Coding Level of Care Code 25784 SUB INP/OBS CARE 2/35MIN Diagnoses H/O ventricular shunt Recurrent UTI N39.0 Hydrocephalus G91.9 Neurogenic bladder N31.9 Spina bifida of lumbar region with hydrocephalus Q05.2 Presence of hydrocephalus: with hydrocephalus Hypertension I10 Cellulitis of right lower extremity L03.115 Fecal impaction K56.41 (5) Spina bifida of lumbar region Presence of hydrocephalus: with hydrocephalus Qualified Code(s): Q05.2 - Lumbar spina bifida with hydrocephalus
--- NOTE | 2025-06-09 14:06 | Infectious Disease Consult ---
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 She reported some sore throat, cough, stuffy nose the day prior but does have issues with allergies. Was unable to self catheterize on day of presentation, so was concerned about a UTI. Denied shortness of breath, abd pain. On presentation, T 37.7, HR 112, BP 154/108, RR 26, 98% on room air. Was noted to have R foot redness, swelling, mild drainage. Labs with WBC 7.1, Cr 0.58, normal lactate. UA with 0-5 WBCs, 2+ bacteria. COVID-19/flu/RSV negative. CXR with no acute findings. KUB XR with large amt of retained stool. RLE venous doppler with no DVT. Was given ceftriaxone 2 g IV, then transitioned to TMP/SMX on admission to treat possible UTI and RLE cellulitis. Pt with persistent fevers overnight. Discussion: Unclear source of persistent fevers. Does have a urine culture growing Kleb pn eumo in the setting of self catheterization--could represent UTI vs colonization. Also with reported RLE cellulitis. Has COMPANY CONTROLLER shunt, but no complaints of headache or abdominal pain, awaiting LP. Will plan to broaden antibiotics pending blood cultures, Kleb pneumo sensitivity, CSF studies. Noting that pt has persistent fevers despite a dose of ceftriaxone last night, will broaden to ertapenem for now. Recommendations: -Agree with CT A/P with contrast--eval for upper urinary tract infection, peritonitis -Awaiting LP for cell counts, gram stain, culture -After LP, would stop TMP/SMX and start vancomycin dosed per pharmacy and ertapenem 1 g IV q24h Will continue to follow Consultation Information This patient recommendation is based on a telemedicine consult request which was completed asynchronously through chart review and information provided by the primary physician. The patient was not seen or examined today. The evaluation is consultative in nature and all patient care and treatment decisions can either be accepted or rejected by the patient's primary hospital-based treating physician using their own independent medical judgment for their patient. Director Zone contact information: Please call [facility] . (Phone Number For Physician Use Only) Time Spent Reviewing Chart: 31+ minutes History of Present Illness Reason for Consultation: Fever Attending Physician: Jahaira Kirk MD History of Present Illness An e-consult was done due to lack of telepresenter availability. 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 She reported some sore throat, cough, stuffy nose the day prior but does have issues with allergies. Was unable to self catheterize on day of presentation, so was concerned about a UTI. Denied shortness of breath, abd pain. On presentation, T 37.7, HR 112, BP 154/108, RR 26, 98% on room air. Was noted to have R foot redness, swelling, mild drainage. Labs with WBC 7.1, Cr 0.58, normal lactate. UA with 0-5 WBCs, 2+ bacteria. COVID-19/flu/RSV negative. CXR with no acute findings. KUB XR with large amt of retained stool. RLE venous doppler with no DVT. Was given ceftriaxone 2 g IV, then transitioned to TMP/SMX on admission to treat possible UTI and RLE cellulitis. Pt with persistent fevers overnight. Allergies Allergy/AdvReac Type Severity Reaction Status Date / Time Penicillins Allergy Mild RASH Verified 03/21/25 13:43 amoxicillin Allergy Unknown RASH Verified 03/21/25 13:43 Home Medications Medication Instructions Recorded Confirmed Type Leg brace repair #1 ea 08/24/21 03/21/25 Rx Thumb Adductor Wrist Splint #1 ea 12/18/21 03/21/25 Rx oxymetazoline 0.05 % nasal spray 2 spray intranasal Q12H PRN 03/18/23 06/08/25 History (Vicks Sinex 12-Hour) Congestion cetirizine 10 mg tablet (Zyrtec) 10 mg PO DAILY #30 tabs 03/27/23 06/08/25 Rx compress.stocking,knee,reg,med #2 ea 06/06/23 03/21/25 Rx Hygeine Wipes #1 ea 07/10/23 03/21/25 Rx Wheelchair (Powered) #1 ea 11/14/23 03/21/25 Rx cholecalciferol (vitamin D3) 10 10 mcg PO BID #180 tabs 11/24/23 06/08/25 Rx mcg (400 unit) tablet ibandronate 150 mg tablet 150 mg PO MONTHLY #3 tabs 07/12/24 06/08/25 Rx bupropion HCl 150 mg 24 hr tablet, 150 mg PO QAM #30 tabs 01/24/25 06/08/25 Rx extended release (Wellbutrin XL) nitrofurantoin macrocrystal 50 mg 50 mg PO DAILY #30 caps 01/24/25 06/08/25 Rx capsule ipratropium bromide 21 mcg (0.03 2 spray intranasal BID #30 mL 02/15/25 06/08/25 Rx %) nasal spray fluticasone propionate 50 2 spray intranasal DAILY #47.4 mL 02/23/25 06/08/25 Rx mcg/actuation nasal spray,suspension (Allergy Relief (fluticasone)) oxybutynin chloride 15 mg 15 mg PO QAM #90 tabs 02/28/25 06/08/25 Rx tablet,extended release 24 hr fluticasone furoate 200 1 inh inhalation DAILY #60 ea 03/03/25 06/08/25 Rx mcg-vilanterol 25 mcg/dose inhalation powder (Breo Ellipta) famotidine 20 mg tablet 20 mg PO BID #180 tabs 03/21/25 06/08/25 Rx lisinopril 20 mg tablet 20 mg PO DAILY #90 tabs 03/21/25 06/08/25 Rx pantoprazole 40 mg tablet,delayed 40 mg PO QAM #90 tabs 03/29/25 06/08/25 Rx release miscellaneous medical supply 1 ea miscellaneous .COMPLEX #1 ea 05/04/25 Rx meloxicam 15 mg tablet 15 mg PO DAILY #30 tabs 05/16/25 06/08/25 Rx albuterol sulfate 90 mcg/actuation 1 - 2 puff inhalation DIRECTED 06/08/25 06/08/25 History aerosol inhaler (Ventolin HFA) PRN shortness of breath or wheezing levothyroxine 88 mcg tablet 88 mcg PO [id number] 06/08/25 06/08/25 History levothyroxine 88 mcg tablet 176 mcg PO WK 06/08/25 06/08/25 History semaglutide (weight loss) 0.5 0 mg subcut Q7D 06/08/25 06/08/25 History mg/0.5 mL subcutaneous pen injector Patient History Medical History New onset headache History of COVID-19 09/2020, "developed asthma" since Covid infection per patient Asthma well controlled Seizure Single episode at age 12, caused by shunt dysfunction, no issues since Hx of thyroid nodule History of spina bifida Self-catheterizes urinary bladder every 3-4 hours on her own Cholelithiasis Surgical History Hx of bilateral cataract extraction Hx laparoscopic cholecystectomy (03/05/23) Robotic Assisted Laparoscopic Cholecystectomy(Not Applicable) - Hector Han DO, FACS History of colonoscopy Hx of spinal surgery hx spina bifida repair surgery as an S/P ORIF (open reduction internal fixation) fracture R ankle S/P partial thyroidectomy Family History Mother Breast cancer, Onset Age: 57 Grandmother (Maternal) Dementia Father Prostate cancer Sister Breast cancer, Onset Age: 38 Other No family history of adverse response to anesthesia Denies family history of Ovarian cancer Crohn's disease Myocardial infarction Colorectal cancer Ulcerative colitis Social History Smoking Status: Never smoker Second Hand Exposure: No; Do You Dip or Chew Tobacco: No; Hx Alcohol Use: Yes Alcohol type: wine Alcohol Intake Frequency: Monthly or Less Hx Substance Use: No Preferred Language: Estonian Communication Ability: Effective Visual Impairment: No Limitations Hearing Ability: Normal [place] Firer Required: No Beliefs That Will Affect Care: None marital status: Current Living Situation: Spouse current occupational status: employed 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) Other Information That Helps Us Care for You: No Feels Safe at Home: Yes Safety Concerns: Feels Safe At This Time Childhood Exposure to Second-Hand Smoke: No Diet: regular Diet Comment: regular caffeine: Yes during the past year weight has: other Dental Care, Regularly: Yes Physical Activity Frequency: 3-4 Times per Week Physical Activity Frequency Comment: [facility] Seatbelt Use: always Sunscreen Use: Yes Assistive Devices: Wheelchair Results & Data Vital Signs (Past 12 Hours) Vital Signs Temp Pulse Resp BP Pulse Ox O2 Del Method 06/09/25 09:31 Room Air 06/09/25 07:05 38.1 C H 109 H 16 129/80 99 Room Air 06/09/25 04:18 39.2 C H Laboratory Results Short CBC 06/08/25 06/09/25 Range/Units 15:51 06:28 WBC 7.10 5.91 (4.8-10.8) K/ul Hgb 13.1 11.5 L (12.0-16.0) g/dl Hct 39.7 33.9 L (37.0-47.0) % Plt Count 248 209 (130-400) K/uL BMP 06/08/25 06/09/25 06/09/25 15:51 06:28 08:50 Sodium 133 L 135 L Potassium 3.8 TNP 3.3 L Chloride 102 108 H Carbon Dioxide 22 20 L BUN 13 12 Creatinine 0.58 L 0.53 L Glucose 107 H 104 H Calcium 9.0 7.9 L Liver Function 06/08/25 Range/Units 15:51 Total Bilirubin 0.6 (0.2-1.0) mg/dl Direct Bilirubin 0.1 (0-0.2) mg/dl AST 27 (13-39) U/L ALT 32 (7-52) U/L Alkaline Phosphatase 98 (34-104) U/L Albumin 4.3 (3.4-5.0) gm/dl Urine 06/08/25 Range/Units 16:00 Urine Color Yellow Urine Appearance Clear (Clear) Urine pH 5.5 (4.5-7.5) Ur Specific [place] 1.015 (1.000-1.030) Urine Protein 1+ H (Negative) Urine Glucose (UA) Negative (Negative) Diagnostic Findings Chest X-Ray 06/08/25 14:46 XR chest 1V portable CLINICAL HISTORY: Sepsis COMPARISON STUDY: 02/17/2023 FINDINGS: Heart size and pulmonary vasculature are normal. No consolidation or pleural effusion. No pneumothorax. IMPRESSION: No acute findings. ACT 112: Negative or not required by law. Electronically signed by: Hector Humphreys M.D. 06/08/2025 3:07 PM KUB X-Ray 06/08/25 14:46 KUB HISTORY: constipation COMPARISON STUDY: 10/13/2019 FINDINGS: There is a catheter overlying the right abdomen with the distal aspect coiled in the low pelvis. There is a large amount of retained stool. No bowel obstruction seen. No gross free air. IMPRESSION: Large amount of retained stool. ACT 112: Negative or not required by law. The above report was generated using voice recognition software. It may contain grammatical, syntax or spelling errors. Electronically signed by: Hector Humphreys M.D. 06/08/2025 3:09 PM Venous Doppler Study 06/08/25 17:52 Clinical History: Redness and swelling Technique: Venous ultrasound evaluation was performed utilizing grayscale, color Doppler and wave form evaluation. Images were also obtained with and without compression Findings: The right common femoral, superficial femoral, popliteal, and visualized calf veins demonstrate normal anechoic lumens with full compressibility. Normal flow is seen on color Doppler images. Expected waveforms were produced with augmentation maneuvers Impression: No evidence of right leg deep venous thrombosis Electronically signed by Cruz Hoyos 06-08-2025 7:52 PM Lumbar Puncture 06/09/25 08:59 IR lumbar puncture diagnostic CLINICAL HISTORY: fever, Pt has COMPANY CONTROLLER shunt Fluoroscopy time: 10 seconds COMPARISON STUDY: Lumbar spine CT of 02/20/2024 Technique: After the procedure was discussed and questions answered, consent was obtained. Patient was positioned prone on the fluoroscopy table and timeout was performed. The low back was prepped and draped in standard sterile fashion. 1% lidocaine was used for local anesthesia. Under intermittent fluoroscopic guidance, a 22-gauge spinal needle was advanced to the spinal canal at L3-4. Inner stylette was removed. No CSF was obtained despite multiple repositionings of the needle. The patient was uncomfortable on the fluoroscopy table and did not consent to another attempt. Needle was removed. Hemostasis was obtained with manual compression. Sterile dressing was applied. IMPRESSION: Unsuccessful attempted lumbar puncture at L3-4. ACT 112: Negative or not required by law. Electronically signed by: Hector Humphreys M.D. 06/09/2025 11:31 AM Medications Administered Current Inpatient Medications Acetaminophen (Acetaminophen 325 Mg Tab) 650 mg PO Q4H PRN PRN Reason: pain/fever Stop: 07/08/25 21:24 Last Admin: 06/09/25 08:43 Dose: 650 mg Docusate Sodium (Docusate Sodium 100 Mg Cap) 100 mg PO BID [facility] Stop: 07/08/25 21:24 Last Admin: 06/09/25 08:43 Dose: Not Given Enoxaparin Sodium (Enoxaparin Inj 40 Mg/0.4 Ml Syr) 40 mg SQ QAM [facility] Stop: 07/09/25 08:59 Last Admin: 06/09/25 08:44 Dose: 40 mg Famotidine (Famotidine 20 Mg Tab) 20 mg PO BID [facility] Stop: 07/08/25 22:14 Last Admin: 06/09/25 08:43 Dose: 20 mg Guaifenesin (Guaifenesin Sugar Free 100 Mg/5 Ml Udc) 100 mg PO Q6H PRN PRN Reason: Cough Stop: 07/08/25 21:24 Last Admin: 06/09/25 04:33 Dose: 100 mg Levothyroxine Sodium (Levothyroxine Sodium 88 Mcg Tablet) 88 mcg PO [id number] [facility] Stop: 07/09/25 06:29 Last Admin: 06/09/25 06:09 Dose: 88 mcg Levothyroxine Sodium (Levothyroxine Sodium 88 Mcg Tablet) 176 mcg PO [email or web address]@[id number] [facility] Stop: 07/12/25 06:29 Lisinopril (Lisinopril 20 Mg Tab) 20 mg PO HS [facility] Stop: 07/08/25 22:14 Last Admin: 06/08/25 22:32 Dose: 20 mg Ondansetron HCl (Ondansetron Inj 2 Mg/Ml 2 Ml Vial) 4 mg IV Q6H PRN PRN Reason: Nausea Stop: 07/08/25 21:24 Oxybutynin Chloride (Oxybutynin Chloride Xl 5 Mg Tabcr) 15 mg PO QAM [facility] Stop: 07/09/25 09:14 Pantoprazole Sodium (Pantoprazole 40 Mg Tab) 40 mg PO QAM [facility] Stop: 07/09/25 08:59 Last Admin: 06/09/25 08:44 Dose: 40 mg Polyethylene Glycol (Polyethylene (Miralax) 17 Gm Pack) 17 gm PO DAILY [facility] Stop: 07/08/25 21:24 Last Admin: 06/09/25 08:43 Dose: Not Given Trimethoprim/Sulfamethoxazole (Sulfamethoxazole/Trimethoprim Ds 800/160mg Tab) 1 tab PO Q12 [facility] Stop: 06/13/25 21:44 Last Admin: 06/09/25 08:44 Dose: 1 tab (1) Cellulitis Laterality: right Site of cellulitis: extremity Site of cellulitis of extremity: lower extremity Qualified Code(s): L03.115 - Cellulitis of right lower limb
[2025-06-09] MEDS: OPTIRAY 320 100ml IV ONE (14:30)
[2025-06-09] MEDS: OXYBUTYNIN CHLORIDE XL 5 MG TABCR PO SCH (14:54)
--- NOTE | 2025-06-09 15:00 | CT Scan Report ---
CT head/brain wo con CLINICAL HISTORY: fever, pt has STAFF PSYCHIATRIST shunt. TECHNIQUE: Multiple axial CT images of the head were obtained without contrast. A dose lowering tech nique was utilized adhering to the principles of ALARA. CT DOSE: 1994.82 mGy.cm COMPARISON: 02/11/2025 FINDINGS: There is a stable ventricular shunt from a left parietal approach with the tip anterior asp ect right lateral ventricle, stable. 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 No intracranial hemo rrhage seen. No mass effect, midline shift, or hydrocephalus. No skull fracture seen. Visualized para nasal sinuses and mastoid air cells are clear. IMPRESSION: No acute findings. ACT 112: Negative or not required by law. The above report was generated using voice recognition software. It may contain grammatical, syntax o r spelling errors. Electronically signed by: Hector Humphreys M.D. 06/09/2025 2:58 PM
--- NOTE | 2025-06-09 16:08 | CT Scan Report ---
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 A dose lowering technique was utilized adhering to the pr inciples of EUNICE. COMPARISON STUDY: CT lumbar spine February 20, 2024. FINDINGS: Right lower lobe segmental groundglass and consolidative opacities with bronchial wall thic kening, mucous plugging and trace right pleural effusion. Centrally cavitary 1.7 cm consolidation of the basal left lower lobe, image 26. No pneumatosis or pneumoperitoneum. Unremarkable spleen, pancrea s and right adrenal gland. 1.7 cm soft tissue density in the left adrenal gland nodule. Cholecystecto my. Probable hepatic steatosis. Patent portal vein. Borderline enlarged right hilar lymph nodes. Markable kidneys. No hydronephrosis. Decompressed urinary bladder with Patel catheter. 3.6 cm left ad nexal/ovarian cystic lesion. Fibroid uterus. Unremarkable abdominal aorta. No lymphadenopathy. There is severe atrophy of the pelvic and thigh musculature suggestive of nonambulatory status. Mild distal esophageal wall thickening with adjacent inflammatory stranding and subcentimeter lymph nodes. Air-f illed distal esophagus. Moderate colonic fecal retention. Appendix is dilated at 9 mm however is not inflamed. A ventricular peritoneal shunt catheter is noted with distal tip in the right hemipelvis. C hronic changes of the lumbar spine. IMPRESSION: 1. Right lower lobe pneumonia with trace parapneumonic effusion. 2. Findings suspicious for distal esophagitis with periesophageal and right hilar portal enlarged lym ph nodes. 3. No bowel obstruction or bowel wall thickening. 4. The visualized ventriculoperitoneal shunt catheter appears intact. ACT 112: Negative or not required by law. The above report was generated using voice recognition software. It may contain grammatical, syntax o r spelling errors. Electronically signed by: Martínez Lan M.D. 06/09/2025 4:05 PM
[2025-06-09] MEDS ORDERED: Nursing to Pharmacy Communication SCH (16:45)
[2025-06-09] MEDS ORDERED: VANCOMYCIN CONSULT ACTIVE PRN (17:18)
--- NOTE | 2025-06-09 17:22 | Communication Note ---
Date of Service: June 09, 2025 Repeat LP was ordered after discussing with the interventional radiologist. For some reason, the LP order appears to be for tomorrow at 7:45 AM. IR is no more available for tonight. I spoke to infectious disease who recommended starting the IV vancomycin and ertapenem now. Orders placed accordingly.
[2025-06-09] MEDS: COUGH DROP (SUGAR FREE) LOZ 24 LOZ/1 BOX BUCCAL STA (17:55)
[2025-06-09] MEDS: FLUTICASONE/VILANTEROL 100/25MCG 14 PUFFS/INHALER INH SCH (17:55)
[2025-06-09] MEDS: FLUTICASONE PROPIONATE NA SPR 16 GM BTL SCH (19:02)
[2025-06-09] MEDS: VANCOMYCIN HCL 2,000 MG in SODIUM CHLORIDE 0.9% 500 ML IV ONE (19:02)
[2025-06-09] MEDS: ERTAPENEM 1000MG 1,000 MG/10 ML SYR IV SCH (19:02)
[2025-06-09] MEDS: DEXTROMETHORPHAN POLYMR COMPLX 30MG/5 ML BTL PO PRN (20:35)
[2025-06-10] MEDS: VANCOMYCIN HCL 1,250 MG in SODIUM CHLORIDE 0.9% 250 ML IV SCH (02:22)
[2025-06-10 07:17] LABS: Hematocrit (blood only) 33.7 % (37.0-47.0); Hemoglobin 11.3 g/dl (12.0-16.0); Mean Corpuscular Hemoglobin 28.5 pg (25.0-34.0); Mean Corpuscular Volume 84.9 fL (80.0-100.0); Platelet Count 195 K/uL (130-400); RDW Standard Deviation 43.0 fL (36.4-46.3); Red Blood Count 3.97 M/uL (4.20-5.40); White Blood Count 4.61 K/ul (4.8-10.8)
[2025-06-10 07:44] LABS: Anion Gap 7.0 (3-11); Blood Urea Nitrogen 9.0 mg/dl (6-23); Calcium 7.7 mg/dl (8.6-10.3); Carbon Dioxide 21.0 mmol/L (21-32); Chloride 109.0 mmol/L (98-107); Creatinine Clr Calc Pharmacy 104.1 ml/min; Glucose 93.0 mg/dl (70-99(Fasting)); Potassium 3.4 mmol/L (3.5-5.1); Sodium 137.0 mmol/L (136-145)
--- NOTE | 2025-06-10 08:57 | Fluoroscopy Report ---
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 Patient w as positioned prone on the fluoroscopy table and timeout was performed. Lower back was prepped and dr aped in standard sterile fashion. 1% lidocaine was used for local anesthesia. Under intermittent fluo roscopic guidance, a 22-gauge coaxial spinal needle was advanced to the spinal canal at L2-3. Inner s tylette was removed. CSF appeared spontaneously at the needle hub. 2 cc of CSF was collected into eac h of 4 tubes for a total of 8 cc. Needle was removed. Hemostasis was obtained with manual compression . Sterile dressing was applied. IMPRESSION: Lumbar puncture as described. ACT 112: Negative or not required by law. Electronically signed by: Hector Humphreys M.D. 06/10/2025 8:55 AM
[2025-06-10] MEDS ORDERED: FLUTICASONE/VILANTEROL 100/25MCG 14 PUFFS/INHALER INH SCH (09:00)
--- NOTE | 2025-06-10 09:06 | Infectious Disease Progress Nt ---
Date of Service June 10, 2025 Assessment & Plan (1) UTI (urinary tract infection): (2) Neurogenic bladder: (3) H/O ventricular shunt: (4) Recurrent UTI: (5) Pneumonia: Plan Problems: #Pneumonia #UTI vs colonization #Neurogenic bladder requiring self catheterization #[employer] shunt in place Micro: 06/10 Urine Histo Ag: pending 06/10 Urine legionella Ag: pending 06/10 MRSA nares: neg 06/10 CSF gram stain/culture: pending 06/10 CSF meningitis/encephalitis PCR panel: neg 06/08 UCx: Kleb pneumo (R cipro, nitrofurantoin. I levo. Otherwise S) 06/08 BCx x2: NGTD Abx: Erta 06/09 - present Vanc 06/09 - present TMP/SMX 06/08 - 06/09 Ceftriaxone 06/08 50 yo F with spina bifida, wheelchair-bound, neurogenic bladder for which she self catheterizes, recurrent UTIs on nitrofurantoin ppx, [employer] shunt, HTN, GERD, hypothyroidism who presented on 06/08 with fever, weakness. She reported some sore throat, cough, stuffy nose the day prior but does have issues with allergies. Was having difficulty self catheterizing prior to presentation due to constipation, so was concerned about a UTI. Denied shortness of breath, abd pain. On presentation, T 37.7, HR 112, BP 154/108, RR 26, 98% on room air. Was noted to have R foot redness, swelling, mild drainage. Labs with WBC 7.1, Cr 0.58, normal lactate. UA with 0-5 WBCs, 2+ bacteria. COVID-19/flu/RSV negative. CXR with no acute findings. KUB XR with large amt of retained stool. RLE venous doppler with no DVT. Was given ceftriaxone 2 g IV, then transitioned to TMP/SMX on admission to treat possible UTI and RLE cellulitis. Pt with persistent fevers overnight. ID was consulted 06/09 and broadened antibiotics to vanc and ertapenem given persistent fevers on ceftriaxone and TMP/SMX, pending further culture data. CT A/P with contrast showed RLL pneumonia, suspicion for distal esophagitis with periesophageal and R hilar portal enlarged lymph nodes. CT chest 06/10 with RLL pneumonia, pulmonary edema. Pt has continued to fever overnight on vanc and ertapenem. LP on 06/10 showed CSF with elevated WBC 49, but 98% monos, 2% PMNs, not consistent with bacterial infection. CSF meningitis/encephalitis PCR panel negative. Exam of R foot without cellulitis. UCx returned with Kleb pneumo sensi tive to ceftriaxone. With the pneumonia on CT chest, pt denies shortness of breath, worsened cough (has a chronic cough). No significant infectious exposures. Has not been in wooded areas, no known tick or mosquito bites. Discussion: CT chest with RLL pneumonia, but pt without significant respiratory symptoms. Pt still fevering on vanc and ertapenem. No unusual infectious exposures on history. Does have a urine culture growing Kleb pneumo in the setting of self catheterization--could represent UTI vs colonization, but is sensitive to ceftriaxone which she had received initially in the ED. No significant R foot cellulitis on exam. Has [employer] shunt, but no complaints of headache or abdominal pain--LP 06/10 with CSF showing elevated WBCs 49, but predominantly monos, not consistent with bacterial infection, and CSF meningitis/PCR panel negative. Recommendations: - With negative MRSA nares and blood cultures NGTD, will stop vancomycin - Ordered respiratory pathogen panel, urine Legionella Ag, urine Histo Ag - Continue ertapenem 1 g IV q24h - Starting azithromycin 500 mg IV - If pt continues to fever over the weekend, can broaden to meropenem Please note that ID does not round or write notes over the weekend. If questions or concerns arise, please contact the Infectious Disease Call Center and ask to speak with the covering ID physician. Admission and Anticipated Discharge Date Admission Date: June 09, 2025 Subjective Subsequent visit was provided via telemedicine using two-way real-time interactive telecommunication between the patient and the telemedicine provider. For the duration of the visit, the provider was performing the assessment from a different facility than the patient. This includesuse of bluetooth stethoscope forauscultationperformed by the telepresenter that the telemedicine provider can hear if described in the physical exam. Provider Relations Specialist contact information: Please call [facility] [phone]. (Phone Number For Physician Use Only) After establishing a telemedicine visit, patient was: Patient was verified with two unique identifiers, Patient/authorized rep acknowledged consent and understanding and Gave permission to continue telehealth session Time Spent with Patient: Subsequent => 25 min -Antibiotics broadened to vanc, ertapenem yesterday -Febrile overnight -UCx Kleb pneumo sensitivities returned today as S to ceftriaxone -CT A/P yesterday with RLL pneumonia, suspicion for distal esophagitis, [employer] shunt appears intact -Pt denies shortness of breath. Has a chronic cough (likely for months) she thinks is related to allergies, intermittently with thin clear phlegm -Born in [place]. Has never traveled outside of the country. Denies hemoptysis, weight loss, night sweats -The last few days at home, was having trouble getting her smith catheter in because she was constipated -Denies sick contacts, recent tick or mosquito bites -Denies rash, diarrhea -CT chest today with RLL pneumonia Review of System A complete ROS was performed and is negative except as mentioned in the HPI. Physical Exam Physical Exam: GEN: Well-appearing, laying in bed in NAD. RESP: No increased work of breathing ABD: nontender, nondistended SKIN: No R foot erythema NEURO: Alert and oriented. Answers all questions appropriately. Speech not slurred. PSYCH: Normal mood, affect appropriate. Results & Data Vital Signs (Past 12 Hours) Vital Signs Temp Pulse Resp BP Pulse Ox O2 Del Method 06/10/25 08:45 37.6 C H 96 H 17 118/74 97 Room Air 06/10/25 06:43 38.1 C H 06/10/25 03:29 Room Air Laboratory Results Short CBC 06/10/25 Range/Units 06:33 WBC 4.61 L (4.8-10.8) K/ul Hgb 11.3 L (12.0-16.0) g/dl Hct 33.7 L (37.0-47.0) % Plt Count 195 (130-400) K/uL BMP 06/10/25 06:33 Sodium 137 Potassium 3.4 L Chloride 109 H Carbon Dioxide 21 BUN 9 Creatinine 0.58 L Glucose 93 Calcium 7.7 L Diagnostic Findings Lumbar Puncture 06/10/25 07:45 IR lumbar puncture diagnostic CLINICAL HISTORY: fever, pt has [employer] shunt COMPARISON STUDY: Yesterday and CT of 02/20/2024 Technique:: After the procedure was discussed and questions inserted, consent was obtained. Patient was positioned prone on the fluoroscopy table and timeout was performed. Lower back was prepped and draped in standard sterile fashion. 1% lidocaine was used for local anesthesia. Under intermittent fluoroscopic guidance, a 22-gauge coaxial spinal needle was advanced to the spinal canal at L2-3. Inner stylette was removed. CSF appeared spontaneously at the needle hub. 2 cc of CSF was collected into each of 4 tubes for a total of 8 cc. Needle was removed. Hemostasis was obtained with manual compression. Sterile dressing was applied. IMPRESSION: Lumbar puncture as described. ACT 112: Negative or not required by law. Electronically signed by: Hector Humphreys M.D. 06/10/2025 8:[address] 06/10/25 08:55 CT chest diagnostic wo con CT DOSE: 368.22 mGy.cm CLINICAL HISTORY: eval RLL PNA seen on CT abd. TECHNIQUE: Multiaxial CT images of the chest were performed without contrast. A dose lowering technique was utilized adhering to the principles of ALARA. COMPARISON STUDY: Abdominal CT yesterday FINDINGS: There is decreased AP dimension of the trachea with concave posterior border consistent with tracheomalacia. There are mild secretions at the right lower lobe bronchi. There is patchy consolidation with air bronchograms throughout a large portion of the right lower lung lobe. There is mild diffuse septal thickening and mild groundglass opacity diffusely in the lungs otherwise. There is a trace right pleural effusion. No pneumothorax. No pericardial effusion. No enlarged adenopathy. No acute osseous findings. IMPRESSION: 1. Right lower lobe pneumonia. Recommend follow-up chest CT in 3 months to make sure this completely resolves without underlying nodule. 2. Diffuse mild septal thickening and pulmonary groundglass opacity suggests pulmonary edema. Trace right pleural effusion. ACT 112: Negative or not required by law. Electronically signed by: Hector Humphreys M.D. 06/10/2025 9:45 AM Medications Administered Current Inpatient Medications Acetaminophen (Acetaminophen 325 Mg Tab) 650 mg PO Q4H PRN PRN Reason: pain/fever Stop: 07/08/25 21:24 Last Admin: 06/10/25 06:33 Dose: 650 mg Bupropion HCl (Bupropion Xl 150 Mg Tabcr) 150 mg PO QAM SVETLANA Stop: 07/09/25 15:29 Last Admin: 06/10/25 08:50 Dose: 150 mg Dextromethorphan Polymer Complex (Dextromethorphan Polymr Complx 30mg/5 Ml Btl) 30 mg PO Q12H PRN PRN Reason: Cough Stop: 07/09/25 15:21 Last Admin: 06/10/25 05:51 Dose: 30 mg Docusate Sodium (Docusate Sodium 100 Mg Cap) 100 mg PO BID SVETLANA Stop: 07/08/25 21:24 Last Admin: 06/10/25 08:51 Dose: Not Given Enoxaparin Sodium (Enoxaparin Inj 40 Mg/0.4 Ml Syr) 40 mg SQ QAM SVETLANA Stop: 07/09/25 08:59 Last Admin: 06/10/25 08:51 Dose: 40 mg Famotidine (Famotidine 20 Mg Tab) 20 mg PO BID SVETLANA Stop: 07/08/25 22:14 Last Admin: 06/10/25 08:53 Dose: 20 mg Fluticasone Propionate (Fluticasone Propionate Na Spr 16 Gm Btl) 2 sprays NA DAILY SVETLANA Stop: 07/09/25 17:14 Last Admin: 06/10/25 08:51 Dose: 2 sprays Fluticasone/Vilanterol (Fluticasone/Vilanterol 100/25mcg 14 Puffs/Inhaler) 1 puffs INH DAILY [facility] Stop: 07/09/25 16:59 Last Admin: 06/10/25 08:50 Dose: 1 puffs Vancomycin HCl 1,250 mg/ (Sodium Chloride) 275 mls @ 200 mls/hr IV Q12H SVETLANA Stop: 06/20/25 01:59 Last Admin: 06/10/25 13:27 Dose: 200 mls/hr Ertapenem (Invanz 1000mg) 1,000 mg in 10 mls @ 2 mls/min IV Q24H [facility] Stop: 06/19/25 17:59 Last Admin: 06/09/25 19:02 Dose: 2 mls/min Levothyroxine Sodium (Levothyroxine Sodium 88 Mcg Tablet) 88 mcg PO [id number] [facility] Stop: 07/09/25 06:29 Last Admin: 06/10/25 05:51 Dose: 88 mcg Levothyroxine Sodium (Levothyroxine Sodium 88 Mcg Tablet) 176 mcg PO Simon@0630 [facility] Stop: 07/12/25 06:29 Lisinopril (Lisinopril 20 Mg Tab) 20 mg PO HS SVETLANA Stop: 07/08/25 22:14 Last Admin: 06/09/25 20:31 Dose: 20 mg Miscellaneous Information (Vancomycin Consult Active) 1 each N/A UD PRN PRN Reason: Consult Stop: 07/09/25 17:17 Ondansetron HCl (Ondansetron Inj 2 Mg/Ml 2 Ml Vial) 4 mg IV Q6H PRN PRN Reason: Nausea Stop: 07/08/25 21:24 Oxybutynin Chloride (Oxybutynin Chloride Xl 5 Mg Tabcr) 15 mg PO QAM SVETLANA Stop: 07/09/25 09:14 Last Admin: 06/10/25 08:50 Dose: 15 mg Pantoprazole Sodium (Pantoprazole 40 Mg Tab) 40 mg PO QAM SVETLANA Stop: 07/09/25 08:59 Last Admin: 06/10/25 08:50 Dose: 40 mg Polyethylene Glycol (Polyethylene (Miralax) 17 Gm Pack) 17 gm PO DAILY SVETLANA Stop: 07/08/25 21:24 Last Admin: 06/10/25 08:51 Dose: Not Given
--- NOTE | 2025-06-10 09:09 | Pharmacy Report ---
Pharmacy PK ABX Note - Date of Service June 10, 2025 - Assessment and Plan Assessment 50 year old F receiving empiric vancomycin and ertapenem for treatment of persistent fevers w/ unclear source. Pertinent microbiologic data includes: urine culture growing Klebsiella pneumoniae (resistant to cipro and nitrofurantoin), blood cultures x 2 show no growth at 24 hours, CSF pending. Pertinent PMH includes spina bifida (wheel chair bound), neurogenic bladder requiring self-catheterization w/ recurrent UTI Lumbar puncture performed this morning (06/10), antibiotics were initiated prior to LP. ID consulted. Day # 2 of antimicrobial therapy. Plan Vancomycin * Loading dose: 2000 mg IV x 1 * Maintenance dose: 1250 mg IV every 12 hours * Regimen is predicted to achieve target AUC/CARMELO of 400-600 mg/L.hr * Random level ordered for: 06/11/25 Ertapenem * 1 g IV q24h - appropriately dosed Pharmacy will continue to follow and will adjust dose/frequency as necessary. Thank you. Pharmacy has transitioned to AUC monitoring for vancomycin. AUC/CARMELO is the preferred PK/PD target and is associated with decreased risk of nephrotoxicity compared to traditional trough targets.
[2025-06-10 09:42] LABS: CSF Count Tube # 3; CSF Xanthrochromic No xanthochromia; Mononuclear WBC CSF Auto 98.0 %; Polynuclear WBC CSF Auto 2.0 %; Red Blood Cell CSF Manual 67 (0); White Blood Cell CSF Auto 49 /uL (0-5)
--- NOTE | 2025-06-10 09:46 | CT Scan Report ---
CT chest diagnostic wo con CT DOSE: 368.22 mGy.cm CLINICAL HISTORY: eval RLL PNA seen on CT abd. TECHNIQUE: Multiaxial CT images of the chest were performed without contrast. A dose lowering techni que was utilized adhering to the principles of ALARA. COMPARISON STUDY: Abdominal CT yesterday FINDINGS: There is decreased AP dimension of the trachea with concave posterior border consistent wit h tracheomalacia. There are mild secretions at the right lower lobe bronchi. There is patchy consolid ation with air bronchograms throughout a large portion of the right lower lung lobe. There is mild di ffuse septal thickening and mild groundglass opacity diffusely in the lungs otherwise. There is a tra ce right pleural effusion. No pneumothorax. No pericardial effusion. No enlarged adenopathy. No acute osseous findings. IMPRESSION: 1. Right lower lobe pneumonia. Recommend follow-up chest CT in 3 months to make sure this completely resolves without underlying nodule. 2. Diffuse mild septal thickening and pulmonary groundglass opacity suggests pulmonary edema. Trace r ight pleural effusion. ACT 112: Negative or not required by law. Electronically signed by: Hector Humphreys M.D. 06/10/2025 9:45 AM
[2025-06-10 10:14] LABS: Cryptococcus neoformans/ga PCR Not Detected (NotDetected); Escherichia coli K1 PCR Not Detected (NotDetected); Haemophilius influenzae PCR Not Detected (NotDetected); Herpes Simplex Virus 1 PCR Not Detected (NotDetected); Herpes Simplex Virus 2 PCR Not Detected (NotDetected); Human Herpes Virus 6 PCR Not Detected (NotDetected); Human Parechovirus PCR Not Detected (NotDetected); Listeria monocytogenes PCR Not Detected (NotDetected); Neisseria meningitidis PCR Not Detected (NotDetected); Streptococcus agalactiae PCR Not Detected (NotDetected); Streptococcus pneumoniae PCR Not Detected (NotDetected)
--- NOTE | 2025-06-10 15:42 | Hospitalist Progress Note ---
Date of Service June 10, 2025 Assessment & Plan (1) H/O ventricular shunt: (2) Recurrent UTI: (3) Hydrocephalus: (4) Neurogenic bladder: (5) Spina bifida of lumbar region: (6) Hypertension: (7) Cellulitis of right lower extremity: (8) Fecal impaction: Plan This is a 50-year-old female with spina bifida, neurogenic bladder who self catheterizes, hypertension, GERD, hypothyroidism who presents with fever. Urinalysis suggestive of UTI. She has a mild right foot cellulitis. Abdominal x-ray suggestive of fecal impaction. She presents with early sepsis. #Early sepsis She presented with fever and tachycardia No hypotension Sources could be possibly UTI versus right lower extremity cellulitis versus [employer] shunt infection versus right lower lobe pneumonia She self catheterizes and thus has a higher propensity to complicated UTI. Urine culture grew Klebsiella, sensitivities reviewed I had started her on Bactrim that will treat both UTI and right lower extremity cellulitis However she continued to spike fevers and remained tachycardic To explore the possibility of a [employer] shunt infection, CT head and CT abdomen were ordered. LP was done. Consulted infectious disease CSF showed elevated WBCs but predominantly monos which is not consistent with bacterial infection, per ID. Rather her CT chest showed a right lower lobe pneumonia. Negative MRSA nares. Ordered urine Legionella antigen. ID recommends continuing ertapenem and starting azithromycin. ID recommends that if the patient continues to spike fevers of the weekend, can broaden to meropenem. #Complicated UTI versus colonization Urinalysis is suggestive Patient presented with early sepsis Urine culture grew Klebsiella #Right lower extremity cellulitis Patient says that she had an injury leading to an open fracture several years ago. The laceration was sutured but she was left with a open gap that often drains. Her right foot and leg is slightly inflamed today. Appears cellulitic. Improved DVT ruled out #Fecal impaction This was seen on KUB The patient says that she has been constipated for some time and she was unable to self catheterize which could be because of the fecal impaction We will treat with MiraLAX and Colace. May need Dulcolax suppository or enema if no success Patient says that she had a bowel movement last night but does not believe she evacuated enough. Advised her to keep taking laxatives #Hypertension Resume lisinopril #Hypothyroidism Continue Synthroid VTE prophylaxis: Lovenox Full code Admission and Anticipated Discharge Date Admission Date: June 09, 2025 Subjective Patient says that her fever is not as high. She is feeling better overall. She had an LP done today. Review of Systems Review of Systems: All systems reviewed & are unremarkable except as noted in Subjective Physical Exam Physical Exam: General: Awake, conversant. Pleasant and smiling Heart: S1, S2/regular rate and rhythm, no murmur rubs or gallops Lungs: Clear to auscultation bilaterally. Normal effort Abdomen: Soft/nontender/nondistended. No hepatosplenomegaly Extremities: No clubbing/cyanosis. Her legs show signs of contractures. Her right foot and calf is slightly red. There is of very small opening in the right pinky toe with some drainage that does not appear grossly purulent. Behavior: Appropriate, cooperative Results & Data Results & Data Vital Signs (Past 12 Hours) Vital Signs Temp Pulse Pulse Resp BP Pulse Ox O2 Del Method 06/10/25 14:33 37.3 C 95 H 16 148/84 H 97 Room Air 06/10/25 11:23 37.1 C 95 H 17 137/84 93 Room Air 06/10/25 08:45 37.6 C H 96 H 17 118/74 97 Room Air 06/10/25 06:43 38.1 C H Laboratory Results Abnormal lab results 06/10/25 06/10/25 Range/Units 06:33 08:35 WBC 4.61 L (4.8-10.8) K/ul RBC 3.97 L (4.20-5.40) M/uL Hgb 11.3 L (12.0-16.0) g/dl Hct 33.7 L (37.0-47.0) % Potassium 3.4 L (3.5-5.1) mmol/L Chloride 109 H (98-107) mmol/L Creatinine 0.58 L (0.6-1.2) mg/dl Calcium 7.7 L (8.6-10.3) mg/dl CSF WBC (Auto) 49 H* (0-5) /uL CSF Total Protein 166.7 H (15-45) mg/dl Diagnostic Findings Abdomen/Pelvis CT 06/09/25 09:[address] WITH IV AND ORAL CONTRAST HISTORY: Acute fever in a patient with a ventriculoperitoneal shunt catheter Fever, [employer] shunt TECHNIQUE: Multiaxial CT images of the abdomen and pelvis were performed following the IV administration of 93 cc of Optiray and oral contrast. A dose lowering technique was utilized adhering to the principles of ALARA. COMPARISON STUDY: CT lumbar spine February 20, 2024. FINDINGS: Right lower lobe segmental groundglass and consolidative opacities w ith bronchial wall thickening, mucous plugging and trace right pleural effusion. Centrally cavitary 1.7 cm consolidation of the basal left lower lobe, image 26. No pneumatosis or pneumoperitoneum. Unremarkable spleen, pancreas and right adrenal gland. 1.7 cm soft tissue density in the left adrenal gland nodule. Cholecystectomy. Probable hepatic steatosis. Patent portal vein. Borderline enlarged right hilar lymph nodes. Markable kidneys. No hydronephrosis. Decompressed urinary bladder with Patel catheter. 3.6 cm left adnexal/ovarian cystic lesion. Fibroid uterus. Unremarkable abdominal aorta. No lymphadenopathy. There is severe atrophy of the pelvic and thigh musculature suggestive of nonambulatory status. Mild distal esophageal wall thickening with adjacent inflammatory stranding and sub centimeter lymph nodes. Air-filled distal esophagus. Moderate colonic fecal retention. Appendix is dilated at 9 mm however is not inflamed. A ventricular peritoneal shunt catheter is noted with distal tip in the right hemipelvis. Chronic changes of the lumbar spine. IMPRESSION: 1. Right lower lobe pneumonia with trace parapneumonic effusion. 2. Findings suspicious for distal esophagitis with periesophageal and right hilar portal enlarged lymph nodes. 3. No bowel obstruction or bowel wall thickening. 4. The visualized ventriculoperitoneal shunt catheter appears intact. ACT 112: Negative or not required by law. The above report was generated using voice recognition software. It may contain grammatical, syntax or spelling errors. Electronically signed by: Martínez Lan M.D. 06/09/2025 4:05 PM Lumbar Puncture 06/10/25 07:45 IR lumbar puncture diagnostic CLINICAL HISTORY: fever, pt has [employer] shunt COMPARISON STUDY: Yesterday and CT of 02/20/2024 Technique:: After the procedure was discussed and questions inserted, consent was obtained. Patient was positioned prone on the fluoroscopy table and timeout was performed. Lower back was prepped and draped in standard sterile fashion. 1% lidocaine was used for local anesthesia. Under intermittent fluoroscopic guidance, a 22-gauge coaxial spinal needle was advanced to the spinal canal at L2-3. Inner stylette was removed. CSF appeared spontaneously at the needle hub. 2 cc of CSF was collected into each of 4 tubes for a total of 8 cc. Needle was removed. Hemostasis was obtained with manual compression. Sterile dressing was applied. IMPRESSION: Lumbar puncture as described. ACT 112: Negative or not required by law. Electronically signed by: Hector Humphreys M.D. 06/10/2025 8:[address] 06/10/25 08:55 CT chest diagnostic wo con CT DOSE: 368.22 mGy.cm CLINICAL HISTORY: eval RLL PNA seen on CT abd. TECHNIQUE: Multiaxial CT images of the chest were performed without contrast. A dose lowering technique was utilized adhering to the principles of ALARA. COMPARISON STUDY: Abdominal CT yesterday FINDINGS: There is decreased AP dimension of the trachea with concave posterior border consistent with tracheomalacia. There are mild secretions at the right lower lobe bronchi. There is patchy consolidation with air bronchograms throughout a large portion of the right lower lung lobe. There is mild diffuse septal thickening and mild groundglass opacity diffusely in the lungs otherwise. There is a trace right pleural effusion. No pneumothorax. No pericardial effusion. No enlarged adenopathy. No acute osseous findings. IMPRESSION: 1. Right lower lobe pneumonia. Recommend follow-up chest CT in 3 months to make sure this completely resolves without underlying nodule. 2. Diffuse mild septal thickening and pulmonary groundglass opacity suggests pulmonary edema. Trace right pleural effusion. ACT 112: Negative or not required by law. Electronically signed by: Hector Humphreys M.D. 06/10/2025 9:45 AM PG Care Time/CCT Total # of Minutes Spent Total Time Spent with Patient: Total time spent is greater than 50% in coordination of care (as documented) at patient's floor/unit and/or counseling patient: Coding Level of Care Code 05233 SUB INP/OBS CARE 2/35MIN Diagnoses H/O ventricular shunt Recurrent UTI N39.0 Hydrocephalus G91.9 Neurogenic bladder N31.9 Spina bifida of lumbar region with hydrocephalus Q05.2 Presence of hydrocephalus: with hydrocephalus Hypertension I10 Cellulitis of right lower extremity L03.115 Fecal impaction K56.41 (5) Spina bifida of lumbar region Presence of hydrocephalus: with hydrocephalus Qualified Code(s): Q05.2 - Lumbar spina bifida with hydrocephalus
[2025-06-10] MEDS: AZITHROMYCIN 500 MG/255 ML BAG IV SCH (16:00)
[2025-06-11] MEDS: BENZONATATE 100 MG CAPSULE PO PRN (02:25)
[2025-06-11 06:04] LABS: Hematocrit (blood only) 33.0 % (37.0-47.0); Hemoglobin 11.1 g/dl (12.0-16.0); Mean Corpuscular Hemoglobin 27.8 pg (25.0-34.0); Mean Corpuscular Volume 82.5 fL (80.0-100.0); Platelet Count 230 K/uL (130-400); RDW Standard Deviation 42.1 fL (36.4-46.3); Red Blood Count 4.00 M/uL (4.20-5.40); White Blood Count 3.61 K/ul (4.8-10.8)
--- NOTE | 2025-06-11 06:04 | Electrocardiogram Report ---
Test Reason : Blood Pressure : */* mmHG Vent. Rate : 106 BPM Atrial Rate : 106 BPM P-R Int : 150 ms QRS Dur : 76 ms QT Int : 318 ms P-R-T Axes : 51 32 15 degrees QTcB Int : 422 ms Sinus tachycardia Low voltage QRS Borderline ECG When compared with ECG of 17-Feb-2023 11:35, T wave inversion now evident in Inferior leads Confirmed by Servando Bryant ([id number]) on 06/11/2025 6:03:34 AM Referred By: REFERRED SELF Confirmed By: Servando Bryant
[2025-06-11 06:19] LABS: Anion Gap 7.0 (3-11); Blood Urea Nitrogen 8.0 mg/dl (6-23); Calcium 7.7 mg/dl (8.6-10.3); Carbon Dioxide 21.0 mmol/L (21-32); Chloride 107.0 mmol/L (98-107); Creatinine Clr Calc Pharmacy 107.8 ml/min; Glucose 91.0 mg/dl (70-99(Fasting)); Potassium 3.8 mmol/L (3.5-5.1); Sodium 135.0 mmol/L (136-145)
--- NOTE | 2025-06-11 14:55 | Hospitalist Progress Note ---
Date of Service June 11, 2025 Assessment & Plan (1) H/O ventricular shunt: (2) Recurrent UTI: (3) Hydrocephalus: (4) Neurogenic bladder: (5) Spina bifida of lumbar region: (6) Hypertension: (7) Cellulitis of right lower extremity: (8) Fecal impaction: Plan This is a 50-year-old female with spina bifida, neurogenic bladder who self catheterizes, hypertension, GERD, hypothyroidism who presents with fever. Urinalysis suggestive of UTI. She has a mild right foot cellulitis. Abdominal x-ray suggestive of fecal impaction. She presents with early sepsis. #Early sepsis/right lower lobe pneumonia She presented with fever and tachycardia No hypotension Sources could be possibly UTI versus right lower extremity cellulitis versus [employer] shunt infection versus right lower lobe pneumonia She self catheterizes and thus has a higher propensity to complicated UTI. Urine culture grew Klebsiella, sensitivities reviewed I had started her on Bactrim that will treat both UTI and right lower extremity cellulitis However she continued to spike fevers and remained tachycardic To explore the possibility of a [employer] shunt infection, CT head and CT abdomen were ordered. LP was done. Consulted infectious disease CSF showed elevated WBCs but predominantly monos which is not consistent with bacterial infection, per ID. Rather her CT chest showed a right lower lobe pneumonia. Negative MRSA nares. Ordered urine Legionella antigen. ID recommends continuing ertapenem and starting azithromycin. ID recommends that if the patient continues to spike fevers of the weekend, can broaden to meropenem. Patient however is feeling better overall. Coughing less. Her fevers are not as high anymore. Will watch for another 24 hours and if she still continues to spike fevers, will broaden to meropenem. #Complicated UTI versus colonization Urinalysis is suggestive Patient presented with early sepsis Urine culture grew Klebsiella #Right lower extremity cellulitis Patient says that she had an injury leading to an open fracture several years ago. The laceration was sutured but she was left with a open gap that often drains. Improved DVT ruled out #Fecal impaction This was seen on KUB The patient says that she has been constipated for some time and she was unable to self catheterize which could be because of the fecal impaction We will treat with MiraLAX and Colace. May need Dulcolax suppository or enema if no success #Hypertension Resume lisinopril #Hypothyroidism Continue Synthroid VTE prophylaxis: Lovenox Full code Admission and Anticipated Discharge Date Admission Date: June 09, 2025 Subjective Patient says that she feels better overall. Coughing less. She says that she has been spiking fevers but the fevers are not as high anymore. Review of Systems Review of Systems: All systems reviewed & are unremarkable except as noted in Subjective Physical Exam Physical Exam: General: Awake, conversant. Pleasant and smiling Heart: S1, S2/regular rate and rhythm, no murmur rubs or gallops Lungs: Clear to auscultation bilaterally. Normal effort Abdomen: Soft/nontender/nondistended. No hepatosplenomegaly Extremities: No clubbing/cyanosis. Her legs show signs of contractures. Her right foot and calf are not little red anymore. There is of very small opening in the right pinky toe with some drainage that does not appear grossly purulent. Behavior: Appropriate, cooperative Results & Data Results & Data Vital Signs (Past 12 Hours) Vital Signs Temp Pulse Resp BP Pulse Ox O2 Del Method 06/11/25 14:35 Room Air 06/11/25 07:46 38.0 C H 100 H 18 136/81 91 Room Air Laboratory Results Abnormal lab results 06/11/25 Range/Units 05:30 WBC 3.61 L (4.8-10.8) K/ul RBC 4.00 L (4.20-5.40) M/uL Hgb 11.1 L (12.0-16.0) g/dl Hct 33.0 L (37.0-47.0) % Sodium 135 L (136-145) mmol/L Creatinine 0.56 L (0.6-1.2) mg/dl Calcium 7.7 L (8.6-10.3) mg/dl PG Care Time/CCT Total # of Minutes Spent Total Time Spent with Patient: Total time spent is greater than 50% in coordination of care (as documented) at patient's floor/unit and/or counseling patient: Coding Level of Care Code 82439 SUB INP/OBS CARE 2/35MIN Diagnoses H/O ventricular shunt Recurrent UTI N39.0 Hydrocephalus G91.9 Neurogenic bladder N31.9 Spina bifida of lumbar region with hydrocephalus Q05.2 Presence of hydrocephalus: with hydrocephalus Hypertension I10 Cellulitis of right lower extremity L03.115 Fecal impaction K56.41 (5) Spina bifida of lumbar region Presence of hydrocephalus: with hydrocephalus Qualified Code(s): Q05.2 - Lumbar spina bifida with hydrocephalus
[2025-06-12 06:23] LABS: Hematocrit (blood only) 31.8 % (37.0-47.0); Hemoglobin 10.7 g/dl (12.0-16.0); Mean Corpuscular Hemoglobin 27.7 pg (25.0-34.0); Mean Corpuscular Volume 82.4 fL (80.0-100.0); Platelet Count 236 K/uL (130-400); RDW Standard Deviation 42.4 fL (36.4-46.3); Red Blood Count 3.86 M/uL (4.20-5.40); White Blood Count 3.76 K/ul (4.8-10.8)
[2025-06-12] MEDS: LEVOTHYROXINE SODIUM 88 MCG TABLET PO SCH (06:45)
[2025-06-12 07:40] LABS: Anion Gap 7.0 (3-11); Blood Urea Nitrogen 7.0 mg/dl (6-23); Calcium 8.1 mg/dl (8.6-10.3); Carbon Dioxide 23.0 mmol/L (21-32); Chloride 109.0 mmol/L (98-107); Creatinine Clr Calc Pharmacy 134.1 ml/min; Glucose 95.0 mg/dl (70-99(Fasting)); Potassium 3.7 mmol/L (3.5-5.1); Sodium 139.0 mmol/L (136-145)
--- NOTE | 2025-06-12 11:35 | Hospitalist Progress Note ---
Date of Service June 12, 2025 Assessment & Plan (1) H/O ventricular shunt: (2) Recurrent UTI: (3) Hydrocephalus: (4) Neurogenic bladder: (5) Spina bifida of lumbar region: (6) Hypertension: (7) Cellulitis of right lower extremity: (8) Fecal impaction: Plan This is a 50-year-old female with spina bifida, neurogenic bladder who self catheterizes, hypertension, GERD, hypothyroidism who presents with fever. Urinalysis suggestive of UTI. She has a mild right foot cellulitis. Abdominal x-ray suggestive of fecal impaction. She presents with early sepsis. #Early sepsis/right lower lobe pneumonia She presented with fever and tachycardia No hypotension Sources could be possibly UTI versus right lower extremity cellulitis versus MOLD [employer]OLER shunt infection versus right lower lobe pneumonia She self catheterizes and thus has a higher propensity to complicated UTI. Urine culture grew Klebsiella, sensitivities reviewed I had started her on Bactrim that will treat both UTI and right lower extremity cellulitis However she continued to spike fevers and remained tachycardic To explore the possibility of a MOLD TOOLER shunt infection, CT head and CT abdomen were ordered. LP was done. Consulted infectious disease CSF showed elevated WBCs but predominantly monos which is not consistent with bacterial infection, per ID. Rather her CT chest showed a right lower lobe pneumonia. Negative MRSA nares. Ordered urine Legionella antigen. ID recommends continuing ertapenem and starting azithromycin. ID recommends that if the patient continues to spike fevers of the weekend, can broaden to meropenem. Patient is feeling better overall. Coughing less. She has not spiked a fever since yesterday. #Complicated UTI versus colonization Urinalysis is suggestive Patient presented with early sepsis Urine culture grew Klebsiella #Right lower extremity cellulitis Patient says that she had an injury leading to an open fracture several years ago. The laceration was sutured but she was left with a open gap that often drains. Improved DVT ruled out #Fecal impaction This was seen on KUB The patient says that she has been constipated for some time and she was unable to self catheterize which could be because of the fecal impaction We will treat with MiraLAX and Colace. #Hypertension Resume lisinopril #Hypothyroidism Continue Synthroid VTE prophylaxis: Lovenox Full code Admission and Anticipated Discharge Date Admission Date: June 09, 2025 Subjective Patient feels better overall. Says that she has not spiked a fever since yesterday. Her cough is getting better. Review of Systems Review of Systems: All systems reviewed & are unremarkable except as noted in Subjective Physical Exam Physical Exam: General: Awake, conversant. Pleasant and smiling Heart: S1, S2/regular rate and rhythm, no murmur rubs or gallops Lungs: Clear to auscultation bilaterally. Normal effort Abdomen: Soft/nontender/nondistended. No hepatosplenomegaly Extremities: No clubbing/cyanosis. Her legs show signs of contractures. Her right foot and calf are not little red anymore. There is of very small opening in the right pinky toe with some drainage that does not appear grossly purulent. Behavior: Appropriate, cooperative Results & Data Results & Data Vital Signs (Past 12 Hours) Vital Signs Temp Pulse Resp BP Pulse Ox O2 Del Method 06/12/25 08:00 36.8 C 84 16 128/91 96 Room Air Laboratory Results Abnormal lab results 06/12/25 Range/Units 06:02 WBC 3.76 L (4.8-10.8) K/ul RBC 3.86 L (4.20-5.40) M/uL Hgb 10.7 L (12.0-16.0) g/dl Hct 31.8 L (37.0-47.0) % Chloride 109 H (98-107) mmol/L Creatinine 0.45 L (0.6-1.2) mg/dl Calcium 8.1 L (8.6-10.3) mg/dl PG Care Time/CCT Total # of Minutes Spent Total Time Spent with Patient: Total time spent is greater than 50% in coordination of care (as documented) at patient's floor/unit and/or counseling patient: Coding Level of Care Code 96887 SUB INP/OBS CARE 2/35MIN Diagnoses H/O ventricular shunt Recurrent UTI N39.0 Hydrocephalus G91.9 Neurogenic bladder N31.9 Spina bifida of lumbar region with hydrocephalus Q05.2 Presence of hydrocephalus: with hydrocephalus Hypertension I10 Cellulitis of right lower extremity L03.115 Fecal impaction K56.41 (5) Spina bifida of lumbar region Presence of hydrocephalus: with hydrocephalus Qualified Code(s): Q05.2 - Lumbar spina bifida with hydrocephalus
[2025-06-12 15:40] LABS: Chlamydia pneumoniae PCR Not Detected (NotDetected); Coronavirus 229E PCR Not Detected (NotDetected); Coronavirus CoV-2 (COVID19)PCR Not Detected (NotDetected); Coronavirus HKU1 PCR Not Detected (NotDetected); Coronavirus NL63 PCR Not Detected (NotDetected); Coronavirus OC43PCR Not Detected (NotDetected); Human Metapneumovirus PCR Not Detected (NotDetected); Parainfluenza Virus 1 PCR Not Detected (NotDetected); Parainfluenza Virus 2 PCR Not Detected (NotDetected); Parainfluenza Virus 3 PCR Not Detected (NotDetected); Parainfluenza Virus 4 PCR Not Detected (NotDetected); Respiratory Syncytial VirusPCR Not Detected (NotDetected); Rhinovirus/Enterovirus PCR Not Detected (NotDetected)
[2025-06-13 08:51] LABS: Hematocrit (blood only) 32.2 % (37.0-47.0); Hemoglobin 11.0 g/dl (12.0-16.0); Mean Corpuscular Hemoglobin 28.6 pg (25.0-34.0); Mean Corpuscular Volume 83.6 fL (80.0-100.0); Platelet Count 308 K/uL (130-400); RDW Standard Deviation 43.6 fL (36.4-46.3); Red Blood Count 3.85 M/uL (4.20-5.40); White Blood Count 5.60 K/ul (4.8-10.8)
[2025-06-13] MEDS: COUGH DROP (SUGAR FREE) LOZ 24 LOZ/1 BOX BUCCAL ONE (08:54)
[2025-06-13 09:16] LABS: Anion Gap 6.0 (3-11); Blood Urea Nitrogen 6.0 mg/dl (6-23); Calcium 8.2 mg/dl (8.6-10.3); Carbon Dioxide 24.0 mmol/L (21-32); Chloride 111.0 mmol/L (98-107); Creatinine Clr Calc Pharmacy 143.7 ml/min; Glucose 96.0 mg/dl (70-99(Fasting)); Potassium 3.5 mmol/L (3.5-5.1); Sodium 141.0 mmol/L (136-145)
--- NOTE | 2025-06-13 09:20 | Infectious Disease Progress Nt ---
Date of Service June 13, 2025 Assessment & Plan (1) UTI (urinary tract infection): (2) Neurogenic bladder: (3) H/O ventricular shunt: (4) Recurrent UTI: (5) Pneumonia: Plan Problems: #Adenovirus #Pneumonia #UTI vs colonization #Neurogenic bladder requiring self catheterization #[employer] shunt in place Micro: 06/10 Urine Histo Ag: pending 06/10 Urine legionella Ag: pending 06/10 MRSA nares: neg 06/10 CSF gram stain/culture: NG 06/10 CSF meningitis/encephalitis PCR panel: neg 06/08 UCx: Kleb pneumo (R cipro, nitrofurantoin. I levo. Otherwise S) 06/08 BCx x2: NGTD Abx: Azithro 06/10 - 06/12 Erta 06/09 - 06/12 Vanc 06/09 - 06/10 TMP/SMX 06/08 - 06/09 Ceftriaxone 06/08 50 yo F with spina bifida, wheelchair-bound, neurogenic bladder for which she self catheterizes, recurrent UTIs on nitrofurantoin ppx, [employer] shunt, HTN, GERD, hy pothyroidism who presented on 06/08 with fever, weakness. She reported some sore throat, cough, stuffy nose the day prior but does have issues with allergies. Was having difficulty self catheterizing prior to presentation due to constipation, so was concerned about a UTI. Denied shortness of breath, abd pain. On presentation, T 37.7, HR 112, BP 154/108, RR 26, 98% on room air. Was noted to have R foot redness, swelling, mild drainage. Labs with WBC 7.1, Cr 0.58, normal lactate, procal 0.09. UA with 0-5 WBCs, 2+ bacteria. COVID-19/flu/RSV negative. CXR with no acute findings. KUB XR with large amt of retained stool. RLE venous doppler with no DVT. Was given ceftriaxone 2 g IV, then transitioned to TMP/SMX on admission to treat possible UTI and RLE cellulitis. Pt with persistent fevers overnight. ID was consulted 06/09 and broadened antibiotics to vanc and ertapenem given persistent fevers on ceftriaxone and TMP/SMX, pending further culture data. CT A/P with contrast showed RLL pneumonia, suspicion for distal esophagitis with periesophageal and R hilar portal enlarged lymph nodes. CT chest 06/10 with RLL pneumonia, pulmonary edema. Pt has continued to fever overnight on vanc and erta penem. LP on 06/10 showed CSF with elevated WBC 49, but 98% monos, 2% PMNs, not consistent with bacterial infection. CSF meningitis/encephalitis PCR panel negative. Exam of R foot without cellulitis. UCx returned with Kleb pneumo sensitive to ceftriaxone. With the pneumonia on CT chest, pt denies shortness of breath, worsened cough (has a chronic cough). No significant infectious exposures. Has not been in wooded areas, no known tick or mosquito bites. Discussion: CT chest with RLL pneumonia, but pt without significant respiratory symptoms. Pt still fevering on vanc and ertapenem. No unusual infectious exposures on history. Does have a urine culture growing Kleb pneumo in the setting of self catheterization--could represent UTI vs colonization, but is sensitive to ceftriaxone which she had received initially in the ED. No significant R foot cellulitis on exam. 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 Respiratory pathogen panel came back positive for adenovirus which could explain her fevers. Recommendations: - Discontinued ertapenem and azithromycin, as adenovirus may explain her symptoms - Monitor for recurrence of fevers off antibiotics Will sign off. Discussed with Dr. Dumont. Admission and Anticipated Discharge Date Admission Date: June 09, 2025 Subjective Subsequent visit was provided via telemedicine using two-way real-time interactive telecommunication between the patient and the telemedicine provider. For the duration of the visit, the provider was performing the assessment from a different facility than the patient. This includesuse of bluetooth stethoscope forauscultationperformed by the telepresenter that the telemedicine provider can hear if described in the physical exam. Sap Consultant contact information: Please call [facility] [phone]. (Phone Number For Physician Use Only) After establishing a telemedicine visit, patient was: Patient was verified with two unique identifiers, Patient/authorized rep acknowledged consent and understanding and Gave permission to continue telehealth session Time Spent with Patient: Subsequent => 25 min Last fever 7/26 AM Continues on erta, azithro respiratory pathogen panel positive for adenovirus Pt feels improved. Reports diarrhea starting last night. Continues with chronic cough, some sore throat Cannot move her L leg which is new Review of System A complete ROS was performed and is negative except as mentioned in the HPI. Physical Exam Physical Exam: GEN: Well-appearing, in NAD. RESP: No increased work of breathing EXT: No LE edema. Warm, well-perfused. SKIN: No lesions or rashes on exposed skin. NEURO: Alert and oriented. Answers all questions appropriately. Speech not slurred. Unable to move LLE PSYCH: Normal mood, affect appropriate. Results & Data Vital Signs (Past 12 Hours) Vital Signs Temp Pulse Resp BP BP Pulse Ox O2 Del Method 06/13/25 08:13 37.0 C 83 18 137/68 93 Room Air 06/12/25 21:42 153/88 H Laboratory Results Short CBC 06/13/25 Range/Units 08:02 WBC 5.60 (4.8-10.8) K/ul Hgb 11.0 L (12.0-16.0) g/dl Hct 32.2 L (37.0-47.0) % Plt Count 308 (130-400) K/uL BMP 06/13/25 08:02 Sodium 141 Potassium 3.5 Chloride 111 H Carbon Dioxide 24 BUN 6 Creatinine 0.42 L Glucose 96 Calcium 8.2 L Medications Administered Current Inpatient Medications Acetaminophen (Acetaminophen 325 Mg Tab) 650 mg PO Q4H PRN PRN Reason: pain/fever Stop: 07/08/25 21:24 Last Admin: 06/11/25 16:33 Dose: 650 mg Benzonatate (Benzonatate 100 Mg Capsule) 100 mg PO TID PRN PRN Reason: Cough Stop: 07/11/25 08:59 Last Admin: 06/12/25 20:54 Dose: 100 mg Bupropion HCl (Bupropion Xl 150 Mg Tabcr) 150 mg PO QAM SVETLANA Stop: 07/09/25 15:29 Last Admin: 06/13/25 08:54 Dose: 150 mg Dextromethorphan Polymer Complex (Dextromethorphan Polymr Complx 30mg/5 Ml Btl) 30 mg PO Q12H PRN PRN Reason: Cough Stop: 07/09/25 15:21 Last Admin: 06/11/25 22:28 Dose: 30 mg Docusate Sodium (Docusate Sodium 100 Mg Cap) 100 mg PO BID SVETLANA Stop: 07/08/25 21:24 Last Admin: 06/13/25 08:30 Dose: Not Given Enoxaparin Sodium (Enoxaparin Inj 40 Mg/0.4 Ml Syr) 40 mg SQ QAM SVETLANA Stop: 07/09/25 08:59 Last Admin: 06/13/25 08:54 Dose: 40 mg Famotidine (Famotidine 20 Mg Tab) 20 mg PO BID SVETLANA Stop: 07/08/25 22:14 Last Admin: 06/13/25 08:54 Dose: 20 mg Fluticasone Propionate (Fluticasone Propionate Na Spr 16 Gm Btl) 2 sprays NA DAILY SVETLANA Stop: 07/09/25 17:14 Last Admin: 06/13/25 08:55 Dose: 2 sprays Fluticasone/Vilanterol (Fluticasone/Vilanterol 100/25mcg 14 Puffs/Inhaler) 1 puffs INH DAILY SVETLANA Stop: 07/09/25 16:59 Last Admin: 06/13/25 08:55 Dose: 1 puffs Ertapenem (Invanz 1000mg) 1,000 mg in 10 mls @ 2 mls/min IV Q24H SVETLANA Stop: 06/19/25 17:59 Last Admin: 06/12/25 16:59 Dose: 2 mls/min Azithromycin (Zithromax) 500 mg in 255 mls @ 127.5 mls/hr IV Q24H SVETLANA Stop: 06/15/25 14:59 Last Infusion: 06/12/25 17:01 Dose: Infused Levothyroxine Sodium (Levothyroxine Sodium 88 Mcg Tablet) 88 mcg PO [id number]@0630 [facility] Stop: 07/09/25 06:29 Last Admin: 06/13/25 05:49 Dose: 88 mcg Levothyroxine Sodium (Levothyroxine Sodium 88 Mcg Tablet) 176 mcg PO Simon@0630 [facility] Stop: 07/12/25 06:29 Last Admin: 06/12/25 06:45 Dose: 176 mcg Lisinopril (Lisinopril 20 Mg Tab) 20 mg PO HS SVETLANA Stop: 07/08/25 22:14 Last Admin: 06/12/25 20:55 Dose: 20 mg Ondansetron HCl (Ondansetron Inj 2 Mg/Ml 2 Ml Vial) 4 mg IV Q6H PRN PRN Reason: Nausea Stop: 07/08/25 21:24 Oxybutynin Chloride (Oxybutynin Chloride Xl 5 Mg Tabcr) 15 mg PO QAM [facility] Stop: 07/09/25 09:14 Last Admin: 06/13/25 08:54 Dose: 15 mg Pantoprazole Sodium (Pantoprazole 40 Mg Tab) 40 mg PO QAM [facility] Stop: 07/09/25 08:59 Last Admin: 06/13/25 08:54 Dose: 40 mg Polyethylene Glycol (Polyethylene (Miralax) 17 Gm Pack) 17 gm PO DAILY [facility] Stop: 07/08/25 21:24 Last Admin: 06/13/25 08:30 Dose: Not Given
--- NOTE | 2025-06-13 14:59 | Hospitalist Progress Note ---
"Date of Service June 13, 2025 Assessment & Plan (1) Adenovirus infection: (2) H/O ventricular shunt: (3) Recurrent UTI: (4) Hydrocephalus: (5) Neurogenic bladder: (6) Spina bifida of lumbar region: (7) Hypertension: (8) Cellulitis of right lower extremity: (9) Fecal impaction: Plan This is a 50-year-old female with spina bifida, neurogenic bladder who self catheterizes, hypertension, GERD, hypothyroidism who presents with fever. Urinalysis suggestive of UTI. She has a mild right foot cellulitis. Abdominal x-ray suggestive of fecal impaction. She presented with signs of early sepsis. # Adenovirus | upper respiratory infection | RLL PNA Patient presenting with fever + tachycardia Suspected early sepsis with unclear source No hypotension Original sources included UTI (as patient self catheterizes due to her neurogenic bladder) vs. RLE cellulitis vs. [employer] shunt infection Patient was initially started on Bactrim to cover for UTI and RLE cellulitis However, she continued to spike fevers and remained tachycardic ID consult appreciated To explore the possibility of a [employer]PERATOR shunt infection, CT head and CT abdomen were ordered. LP was done. CSF showed elevated WBCs but predominantly monos which is not consistent with bacterial infection, per ID Patient was placed on ertapenem and azithromycin to cover for RLL pneumonia Negative MRSA nares Urine Legionella antigen ordered, pending Patient reports she still having cough, but no reported fevers on 06/12 or 06/13 Adenovirus positive on 06/12; antibiotics discontinued per ID recommendations Contact/droplet isolation precautions Patient does express some concerns about returning home on 06/13, as her is also disabled, and she has concerns about spreading the virus to him Supportive care and continued stay until patient symptoms begin to improve #Complicated UTI versus colonization Urinalysis is suggestive of infection UCx on 06/08 revealed Klebsiella; unclear if colonization in the setting of self- catheterization Antibiotics have been discontinued (as above) #Right lower extremity cellulitis - resolved Patient says that she had an injury leading to an open fracture several years ago. The laceration was sutured but she was left with a open gap that often drains. Improved DVT ruled out #Fecal impaction | diarrhea This was seen on KUB The patient says that she has been constipated for some time and she was unable to self catheterize which could be because of the fecal impaction Treated with MiraLAX and Colace Colace discontinued on 06/13 due to ongoing diarrhea #LLE deficit Patient expressed some concern on 06/13 due to inability to lift left leg Patient is largely wheelchair-bound with diminished sensation of lower extremities bilaterally at baseline Head CT on arrival revealed no acute abnormality No slurred speech, or facial droop; while patient does express concern for stroke, low suspicion at this time PT consult appreciated per pt request # Spina bifida | wheelchair bound | h/o ventricular shunt | hydrocephalus Stable; care per neurology outpatient #Hypertension Continue lisinopril #Hypothyroidism Continue Synthroid Disposition: Continued stay on MedSurg Called patient's mother (Felipa) and provided updates regarding hospital course on 06/13. Explained that adenovirus was likely the culprit of patient's symptoms. Admission and Anticipated Discharge Date Admission Date: June 09, 2025 Subjective Mrs. Alvarez reports she is feeling better than yesterday. Initially, she began to feel fatigued on Friday of this past week, and had intractable fevers. She reports no fevers overnight. She is still having diarrhea, but reports she is eating and drinking well. Her main symptoms at this time are productive cough, and ongoing diarrhea. She also reports that she has some concerns due to numbness and tingling her left leg. No prior history of strokes. She denies any slurred speech, or facial droop. ROS: Patient endorses productive cough, fevers (resolved), and diarrhea. Patient denies chest pain, hemoptysis (which was present on admission, but resolved), pleuritic CP, slurred speech, facial droop, burning with urination, d ysuria, or blood in the urine or stool. Review of Systems Review of Systems: See HPI above Physical Exam Physical Exam: General: no acute distress; non-toxic appearing; well-nourished; cooperative; SpO2 93% on RA HEENT: normocephalic, atraumatic; no scleral icterus; PERRLA w/ EOMs intact; vision and hearing grossly intact Neck: supple; no lymphadenopathy; trachea midline Skin: warm, dry without signs of tenting; no cyanosis; no rashes, bruising, lesions, or erythema noted CV: chest wall NTP; RRR; S1/S2 normal; no murmurs/rubs/gallops; pulses intact and symmetric at radial, DP, and PT Lungs: no acute respiratory distress; symmetrical chest wall expansion; clear breath sounds across all lung meehan w/o adventitious sounds; no wheezing ABD: Soft, NTP; BS present; no rebound/guarding; no distention MSK: no tics or fasciculations; legs show signs of contractures; right foot is mildly erythematous; 1/5 strength in the lower extremities when asked to bend knee/lift legs from the bed bilaterally Neuro: A&Ox3; normal mood and affect; fluent speech; no focal deficits; diminished sensation in the lower extremities bilaterally assessed via light touch Results & Data Results & Data Vital Signs (Past 12 Hours) Vital Signs Temp Pulse Resp BP Pulse Ox O2 Del Method 06/13/25 09:00 Room Air 06/13/25 08:13 37.0 C 83 18 137/68 93 Room Air PG Care Time/CCT Total # of Minutes Spent Total Time Spent with Patient: Total time spent is greater than 50% in coordination of care (as documented) at patient's floor/unit and/or counseling patient: Coding [place] [address] SUB INP/OBS CARE 3/50MIN Patient Type Established History Comprehensive Exam Comprehensive Medical Decision Making High Complexity Diagnoses Adenovirus infection B34.0 H/O ventricular shunt Recurrent UTI N39.0 Hydrocephalus G91.9 Neurogenic bladder N31.9 Spina bifida of lumbar region with hydrocephalus Q05.2 Presence of hydrocephalus: with hydrocephalus Hypertension I10 Cellulitis of right lower extremity L03.115 Fecal impaction K56.41 (6) Spina bifida of lumbar region Presence of hydrocephalus: with hydrocephalus Qualified Code(s): Q05.2 - Lumbar spina bifida with hydrocephalus"
[2025-06-14 08:17] LABS: Hematocrit (blood only) 32.4 % (37.0-47.0); Hemoglobin 10.9 g/dl (12.0-16.0); Mean Corpuscular Hemoglobin 28.4 pg (25.0-34.0); Mean Corpuscular Volume 84.4 fL (80.0-100.0); Platelet Count 331 K/uL (130-400); RDW Standard Deviation 44.1 fL (36.4-46.3); Red Blood Count 3.84 M/uL (4.20-5.40); White Blood Count 6.13 K/ul (4.8-10.8)
[2025-06-14 09:26] LABS: Anion Gap 6.0 (3-11); Calcium 8.4 mg/dl (8.6-10.3); Carbon Dioxide 26.0 mmol/L (21-32); Chloride 111.0 mmol/L (98-107); Potassium 3.7 mmol/L (3.5-5.1); Sodium 143.0 mmol/L (136-145)
[2025-06-14 09:32] LABS: Blood Urea Nitrogen 6.0 mg/dl (6-23); Creatinine Clr Calc Pharmacy 134.1 ml/min; Glucose 98.0 mg/dl (70-99(Fasting))
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
--- NOTE | 2025-06-14 18:22 | XRay Report ---
EXAM: XR ankle LT 2V CLINICAL HISTORY: LLE weakness; s/p fall 2 weeks ago TECHNIQUE: X-ray images of the left ankle were obtained in anteroposterior (AP), and lateral projections. COMPARISON: prior left foot X-ray dated 11/07/2023. 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 Osteoarthritic changes are involving their opposing articular surfaces and lateral malleolus showing cortical irregularity and subcortical sclerosis. No evidence of acute fracture or dislocation. No focal osseous lesions or abnormalities identified. Soft Tissues: Soft tissues appear normal and unremarkable. No soft tissue swelling, calcifications, or foreign bodies noted. IMPRESSION: 1. No evidence of acute fracture or dislocation. 2. 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 Osteoarthritic changes are involving their opposing articular surfaces and lateral malleolus. 3. Findings remain stable since prior. Disclaimer: A subtle bone abnormality or fracture may not be readily apparent on X-rays, thus clinical correlation and further imaging including follow-up CT, MRI, or follow-up X-rays are advised as needed. Electronically signed by Dorian Cortez 06-14-2025 6:22 PM
--- NOTE | 2025-06-14 18:26 | XRay Report ---
EXAM: XR tibia fibula LT 2V CLINICAL HISTORY: LLE weakness; s/p fall 2 weeks ago TECHNIQUE: X-ray left tibia and fibula in AP (Anteroposterior) and lateral projections. COMPARISON: Prior xrays dated 11/07/2023. FINDINGS: Bone: Chronic mal-alignment of the distal tibial and talar articulation with resection of talar dome, associated with secondary osteoarthrtiic changes. The remaining visualized tibia and fibula are otherwise intact. No evidence of acute fracture or dislocation. Mild degenerative changes involve the knee joint with a small loose body related to the femoral intercondylar notch. Soft Tissue: Soft tissues appear normal with no significant swelling or abnormal calcifications. IMPRESSION: 1. 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 Changes appear stable compared to priors. 2. Stable, mild osteoarthritis of knee joint. 3. Remaining visualized tibia and fibula appear unremarkable. No acute fractures or dislocation. Disclaimer: A subtle bone abnormality or fracture may not be readily apparent on X-rays, thus clinical correlation and further imaging including follow-up CT, MRI, or follow-up X-rays are advised as needed. Electronically signed by Dorian Cortez 06-14-2025 6:25 PM
[2025-06-14] MEDS: DOCUSATE SODIUM 100 MG CAP PO SCH (20:49)
--- NOTE | 2025-06-15 09:40 | Discharge Summary ---
Discharge Summary Date of Service June 15, 2025 Principal Dx & Hospital Course #1 = Principal Diagnosis (1) Adenovirus infection: (2) H/O ventricular shunt: (3) Recurrent UTI: (4) Hydrocephalus: (5) Neurogenic bladder: (6) Spina bifida of lumbar region: (7) Hypertension: (8) Cellulitis of right lower extremity: (9) Fecal impaction: Plan This is a 50-year-old female with spina bifida, neurogenic bladder who self catheterizes, hypertension, GERD, hypothyroidism who presents with fever. She presented with signs of early sepsis and unknown origin (initial potential sources include UTI, cellulitis, CONSTRUCTION AREA MANAGER shunt infection, and pneumonia). Over the course of her hospital stay, she did test positive for adenovirus, and it is believed that both adenovirus and a concomitant right lower lobe pneumonia are the main causes of her symptoms. # Adenovirus | upper respiratory infection | RLL PNA Patient presenting with fever + tachycardia Unclear source on arrival No hypotension Original sources included UTI (as patient self catheterizes due to her neurogenic bladder) vs. RLE cellulitis vs. CONSTRUCTION AREA MANAGER shunt infection Patient was initially started on Bactrim to cover for UTI and RLE cellulitis However, she continued to spike fevers and remained tachycardic ID consult appreciated To explore the possibility of a CONSTRUCTION AREA MANAGER shunt infection, CT head and CT abdomen were ordered. LP was done. CSF showed elevated WBCs but predominantly monos which is not consistent with bacterial infection, per ID Patient was placed on ertapenem and azithromycin to cover for RLL pneumonia Negative MRSA nares Adenovirus positive on 06/12; antibiotics discontinued per ID recommendations Contact/droplet isolation precautions Supportive care Fevers resolved off antibiotic; afebrile 06/13 - 06/15 Blood cultures drawn on 06/08 with no growth to date x 5 days Urine Legionella antigen negative Patient does express some concerns about returning home, as her is also disabled, and she has concerns about spreading the virus to him Explained that she remains contagious so long as she continues to exhibit symptoms (coughing, sneezing, etc.) However, given her symptoms began on Friday 06/08, and her cough is now improving, infection control recommended she could wear a surgical mask around her whenever she is not within 6 feet up until 06/22 This would give her a 2-week period for the virus to fully run its course It was also recommended that she maintain proper hand hygiene at home When asked if patient's is immunocompromised, patient says no; no history of asthma, smoking, or respiratory conditions Medically stable for discharge from adenovirus standpoint #LLE weakness Patient expressed some concern on 06/13 and 06/14 due to inability to lift left leg Noted improvement on 06/15 Patient is largely wheelchair-bound with diminished sensation of lower extremities bilaterally at baseline Head CT on arrival revealed no acute abnormality No slurred speech, or facial droop; while patient does express concern for stroke, low suspicion at this time Patient was originally concerned that LP earlier in the week might have "struck a nerve" Reached out to neurology on 06/14; low suspicion that LP caused her lower extremity weakness Suspect this is due to physical deconditioning from being in the hospital PT consult appreciated on 06/14 PT to report that she is at a high risk for falls due to LE weakness Per summary, patient is resistant to rehab, though this is advisable prior to returning home X-ray of the left lower extremity revealed no acute fractures Long discussion with patient on the evening of 06/14 about discharge home with HH vs applying for rehab. Patient now amenable to applying for rehab (which runs contrary to several notes from PT/case management). Will touch base with case management on the morning of 06/15. #Complicated UTI versus colonization Urinalysis is suggestive of infection UCx on 06/08 revealed Klebsiella; unclear if colonization in the setting of self- catheterization Patient received ertapenem x 4 days, as well as doses of Rocephin and Bactrim Do not feel that further antibiotics are necessary as patient does not have urinary symptoms at this time Antibiotics have been discontinued (as above) #Right lower extremity cellulitis - resolved Patient says that she had an injury leading to an open fracture several years ago. The laceration was sutured but she was left with a open gap that often drains. Improved DVT ruled out #Fecal impaction | diarrhea This was seen on KUB The patient says that she has been constipated for some time and she was unable to self catheterize which could be because of the fecal impaction Treated with MiraLAX and Colace # Spina bifida | wheelchair bound | h/o ventricular shunt | hydrocephalus Stable; care per neurology outpatient #Hypertension Continue lisinopril #Hypothyroidism Continue Synthroid Disposition: Continued stay on MedSurg; patient is currently medically stable from adenovirus standpoint on 06/14; she continues to have concerns regarding her left lower extremity and reports thatwhile she originally was not amenable to rehab - she would like to speak with a case management associate the morning of 06/15 discussed if this would be an option. Called patient's mother (Felipa) and provided updates regarding hospital course on 06/14. Explained that adenovirus was likely the culprit of patient's symptoms. Explained the patient is currently medically safe for discharge, but continues to express concerns regarding her lower left extremity deficits. Daughter specifically asked that she be involved in the conversation regarding rehab vs PT with home health. Patient's mother reports she would favor acute rehab upon discharge, but is amenable to what ever PT/providers recommend. Notes For Next Care Provider Patient was hospitalized from 06/08 - 06/15 for acute onset of fever and tachycardia. While the source of her infection was unclear on arrival, it is believed that her infection was secondary to a right lower lobe pneumonia + adenovirus. Infectious disease was consulted on arrival, as there was concern for a CONSTRUCTION AREA MANAGER shunt infection. An LP was performed, and CSF analysis did not reveal an acute infection. She was treated for IV antibiotics (ertapenem, and azithromycin) while in the hospital. Patient was transition off of antibiotics, and exhibited stable vital signs and no recurrence of fevers for 72 hours prior to discharge. At time of discharge, she noted that she did have some new deficits in her left lower extremity. Initially, the patient was concerned that the LP had struck one of her nerves. Our neurology team assessed the patient, and it is not thought that the lumbar puncture cause this new lower extremity weakness. Patient still exhibits ability to move her lower extremity, but has difficulty lifting it. Is thought that this was secondary to deconditioning. X-rays were taken of the left lower extremity which did not reveal acute fractures. The plan is to send patient home on home health (PT/OT/nursing). Admission HPI Per Admitting Provider This is a 50-year-old female with spina bifida, wheelchair-bound, neurogenic bladder for which she self catheterizes, hypertension, GERD, hypothyroidism presents with fever and weakness today. The patient stated that she had some sore throat, cough and stuffy nose yesterday but she has issues with allergies. She also was unable to self catheterize today and so was concerned about a UTI. She denied chest pain, shortness of breath, headache. In the ER, she was noted to have a right foot redness and swelling along with mild drainage which was concerning for cellulitis. She stated that years ago, she had bumped her right pinky toe that caused an open fracture. The opening was sutured up but there remained a gap which often drains. She does not complain of any pain in the right foot because she does not have any sensation in her legs bilaterally. Visibly, she did not notice any difference either. In the ER she was noted to have a fever. She had some screening tests done that revealed unremarkable CBC and BMP, negative COVID and flu. Her urinalysis was suggestive of UTI with positive nitrites trace leuk esterase, no WBCs with 2+ bacteria. Her chest x-ray was negative. Her KUB showed findings suggestive of fecal impaction/constipation. She is being admitted for early sepsis and concern for UTI, right lower extremity cellulitis Admission Exam Per Admitting Provider General: Awake, conversant. Pleasant and smiling Heart: S1, S2/regular rate and rhythm, no murmur rubs or gallops Lungs: Clear to auscultation bilaterally. Normal effort Abdomen: Soft/nontender/nondistended. No hepatosplenomegaly Extremities: No clubbing/cyanosis. Her legs show signs of contractures. Her r ight foot and calf is slightly red. There is of very small opening in the right pinky toe with some drainage that does not appear grossly purulent. Behavior: Appropriate, cooperative Discharge Exam General: no acute distress; pleasant affect; sitting upright in bed non-toxic appearing; well-nourished; cooperative; SpO2 98% on RA HEENT: normocephalic, atraumatic; no scleral icterus; PERRLA; vision and hearing grossly intact Neck: supple; no lymphadenopathy; trachea midline Skin: warm, dry without signs of tenting; no cyanosis; no rashes, bruising, lesions, or erythema noted CV: chest wall NTP; RRR Lungs: Productive cough; no acute respiratory distress; symmetrical chest wall expansion; clear breath sounds across all lung meehan w/o adventitious sounds; no wheezing ABD: Soft, NTP; BS present; no rebound/guarding; no distention MSK: no tics or fasciculations; 5/5 position description manager strength bilaterally; legs show signs of contractures; patient does exhibit the ability to slightly move her left lower extremity with significant effort; she is unable to wiggle her toes at baseline Neuro: A&Ox3; normal mood and affect; fluent speech; no facial droop; no slurred speech; patient reports no sensation in the lower extremities bilaterally assessed via light touch extending from the toes up to the knees Discharge Plan Discharge Items Patient Disposition: Home - Home Health Services Reason For Visit: FEVER Discharge Diagnosis: Adenovirus Condition on Discharge: Fair Activity: Resume your previous activity Non-emergency contact: Primary Care Provider Call non-emergency contact if: you have any medication questions, your symptoms worsen, your pain is not controlled and you have a fever Follow-up/Referrals: Hallie Lockhart DO [Primary Care Provider] - 06/27/25 9:20 am Diet: Regular Addtl Attending Provider Instructions: You were hospitalized at [facility] from 06/08 - 06/15 after developing fevers and congestion at home. On arrival, there was concern for sepsis (i.e. severe infection that can sometimes spread to the bloodstream) and potential sources of infection included UTI, right lower extremity cellulitis, and CONSTRUCTION AREA MANAGER shunt. An infectious disease doctor was consulted, and you underwent a lumbar puncture to rule out CONSTRUCTION AREA MANAGER shunt infection. Analysis of the cerebrospinal spine fluid was not consistent with acute infection. Blood cultures were obtained on arrival, but did not have any growth throughout your hospital stay (meaning that there was no infection in the bloodstream). While your urinalysis was suggestive of UTI, this is in the setting of self-catheterization, and is unclear if this was contaminant versus acute infection. Imaging of your chest on 06/10 did reveal a right lower lobe pneumonia. You were treated with the following IV antibiotics (which covered for both a possible UTI, as well as pneumonia): - Ertapenem 06/09 - 06/12 - Azithromycin 06/10 - 06/12 - Vancomycin 06/09 - 06/10 - Bactrim 06/08 - 06/09 - Ceftriaxone 06/08 On 06/12, you tested positive for adenovirus. This is a respiratory virus that is commonly seen in children, but can also occur in adults. This virus can also affect your gastrointestinal system. It is likely that an acute adenovirus infection, as well as a concomitant right lower lobe pneumonia, was to culprit for most of your symptoms. After antibiotics were stopped on 06/13, you reported no recurrence of fevers. Your vital signs remained stable for 72 hours prior to discharge. Additionally, blood work revealed no elevation of white blood cell count to indicate worsening of infection off antibiotic. For these reasons, we feel that is safe for you to return home at this time. Adenovirus is contagious so long as the individual remains symptomatic (cough, sneeze, etc.). Your symptoms originally developed on 06/08. You did express concern about returning home and getting your sick; we recommend that you wear a surgical mask for the next several days until your symptoms fully resolved. Please maintain proper hand hygiene, and if you are concerns keep a distance of around 6 feet or continue to wear surgical masks until you are 2 weeks out from onset of symptoms on 06/22. We will send the following prescription to your pharmacy: - Benzonatate (i.e. "Tessalon Perles") 100 mg which can be taken up to 3 times daily as needed for cough Prior to discharge, you also expressed concern for decreased strength in your left lower extremity. This was new, and developed over the course of your hospitalization. X-rays taken of your left lower extremity revealed no acute fractures. Initially there was concern that the lumbar puncture earlier in your hospitalization may have affected your left leg. Our neurology team was consul jordi; however, it is not felt that the lumbar puncture would affect your left leg in this way. We discussed that this might be secondary to physical deconditioning from being in the hospital. At time of discharge, you report that your left leg weakness is improving. We discussed applying for acute rehab versus returning home with home health (PT/OT/nursing), and ultimately decided that home health would be the better option. Our case management associate are currently setting up home health with [facility]; please be on the look out for correspondence in the next 24 to 48 hours. Please also plan to follow-up with your PCP in the next 1 to 2 weeks for a transitional care appointment. If you develop any new or worsening symptoms, such as fever, chills, slurred speech, chest pain, trouble breathing at rest, or if you have any new or worsening concerns, please return to the Emergency Department immediately. It was a pleasure taking care of you. Please reach out with any questions or concerns. Sincerely, The hospital medicine team at [facility] Pending Studies at Discharge: No Stand-Alone Forms: My [facility] Medications and DC Order Prescriptions: New benzonatate 100 mg Capsule 100 mg PO TID PRN (Reason: cough) Qty: 14 0RF Rx Instructions: Take 1 capsule by mouth up to 3 times daily as needed for cough Continued (DME) Thumb Adductor Wrist Splint See Rx Instructions .Route .MEDSUPPLY Qty: 1 0RF Rx Instructions: As directed cetirizine [Zyrtec] 10 mg tablet 10 mg PO DAILY Qty: 30 0RF Patient Comments: Unable to verify med w/ patient at this date/time. (DME) compress.stocking,knee,reg,med Misc See Rx Instructions .ROUTE .MEDSUPPLY Qty: 2 0RF Rx Instructions: Medium compression 20-30mmHG; Dx: I87.2 (DME) Hygeine Wipes See Rx Instructions .Route .MEDSUPPLY Qty: 1 3RF Rx Instructions: Use as directed (DME) Wheelchair (Powered) Device See Rx Instructions .Route Qty: 1 0RF Rx Instructions: motorized wheelchair repairs. cholecalciferol (vitamin D3) 10 mcg (400 unit) tablet 10 mcg PO BID Qty: 180 3RF Patient Comments: Unable to verify med w/ patient at this date/time. nitrofurantoin macrocrystal 50 mg capsule 50 mg PO DAILY Qty: 30 5RF Patient Comments: Last filled 04/25/25 x30 day supply Rx Instructions: must administer with a meal/food bupropion HCl [Wellbutrin XL] 150 mg tablet extended release 24 hr 150 mg PO QAM Qty: 30 5RF Patient Comments: Last filled 04/26/25 x30 day supply ipratropium bromide 21 mcg (0.03 %) spray,non-aerosol 2 spray intranasal BID Qty: 30 2RF Rx Instructions: administer into each nostril fluticasone propionate [Allergy Relief (fluticasone)] 50 mcg/actuation spray,suspension 2 spray INTNAS DAILY Qty: 47.4 5RF Rx Instructions: administer into each nostril oxybutynin chloride 15 mg tablet extended release 24hr 15 mg PO QAM Qty: 90 1RF fluticasone furoate-vilanterol [Breo Ellipta] 200-25 mcg/dose blister with device 1 inh inhalation DAILY Qty: 60 5RF famotidine 20 mg tablet 20 mg PO BID Qty: 180 1RF lisinopril 20 mg tablet 20 mg PO DAILY Qty: 90 2RF pantoprazole 40 mg tablet,delayed release (DR/EC) 40 mg PO QAM Qty: 90 1RF Patient Comments: Last filled 04/26/25 x30 day supply miscellaneous medical supply Misc 1 ea miscellaneous .COMPLEX Qty: 1 0RF Rx Instructions: Motorized wheel chair evaluate and repair meloxicam 15 mg tablet 15 mg PO DAILY Qty: 30 2RF Patient Comments: Last filled 04/26/25 x30 day supply (DME) Leg brace repair See Rx Instructions .Route .MEDSUPPLY Qty: 1 0RF Rx Instructions: As directed oxymetazoline [Vicks Sinex 12-Hour] 0.05 % spray,non-aerosol 2 spray intranasal Q12H PRN (Reason: Congestion) ibandronate 150 mg tablet 150 mg PO MONTHLY Qty: 3 4RF levothyroxine 88 mcg tablet 176 mcg PO WK Patient Comments: Take 176mcg (88mcg x 2) on Sundays Rx Instructions: Take 176mcg (88mcg x 2) on Sundays levothyroxine 88 mcg tablet 88 mcg PO [id number] Patient Comments: Take 88mcg on Fri//Fri//Fri/Fri Rx Instructions: 88mcg PO Daily M,T,W,T,F,S and 176mcg Friday 1 tablet daily on M,T,W,T,F,S and 2 tablets on Friday albuterol sulfate [Ventolin HFA] 90 mcg/actuation HFA aerosol inhaler 1 - 2 puff inhalation DIRECTED PRN (Reason: shortness of breath or wheezing) Patient Comments: Unable to verify med w/ patient at this date/time. Rx Instructions: 1-2 puffs inhalation 1 puff INH every 4-6 hrs; PRN; semaglutide (weight loss) 0.5 mg/0.5 mL pen injector 0 mg subcut Q7D Patient Comments: Unable to verify med w/ patient at this date/time. Discharge Orders: Discharge Order (Routine); Ordered 06/15/25 Ordered By: Michael Chisholm/Other Patient Handouts: Preventing Pneumonia Admission Data Admit Date/Time: 06/08/25 17:52 Attending Provider: Adal Nunez Admit Provider: Jahaira Kirk Primary Care Provider: Hallie Lockhart Other Providers: Leigh Méndez; David Amador; [facility] Other Interventions: Discharge Summary Assessment (RN) Last Done: 06/15/25 15:49 Hospital Stay Data Consultations 06/08/25 17:13 ED Decision to Admit Stat 06/09/25 11:46 Consult Infectious Diseases Routine 06/14/25 11:18 Consult Neurology Routine Diagnostic Imagining Performed 06/08/25 17:52 US venous doppler LE RT Stat 06/09/25 08:59 IR lumbar puncture diagnostic Urgent CT head/brain wo con Urgent 06/09/25 09:01 CT Abd and Pelvis [CT abd pelvis oral and IV con] Urgent 06/10/25 07:45 IR lumbar puncture diagnostic Routine 06/10/25 08:55 CT chest diagnostic wo con Routine Discharge Instructions Given to Patient (Per Discharging Provider) You were hospitalized at [facility] from 06/08 - 06/15 after developing fevers and congestion at home. On arrival, there was concern for sepsis (i.e. severe infection that can sometimes spread to the bloodstream) and potential sources of infection included UTI, right lower extremity cellulitis, and CONSTRUCTION AREA MANAGER shunt. An infectious disease doctor was consulted, and you underwent a lumbar puncture to rule out CONSTRUCTION AREA MANAGER shunt infection. Analysis of the cerebrospinal spine fluid was not consistent with acute infection. Blood cultures were obtained on arrival, but did not have any growth throughout your hospital stay (meaning that there was no infection in the bloodstream). While your urinalysis was suggestive of UTI, this is in the setting of self-catheterization, and is unclear if this was contaminant versus acute infection. Imaging of your chest on 06/10 did reveal a right lower lobe pneumonia. You were treated with the following IV antibiotics (which covered for both a possible UTI, as well as pneumonia): - Ertapenem 06/09 - 06/12 - Azithromycin 06/10 - 06/12 - Vancomycin 06/09 - 06/10 - Bactrim 06/08 - 06/09 - Ceftriaxone 06/08 On 06/12, you tested positive for adenovirus. This is a respiratory virus that is commonly seen in children, but can also occur in adults. This virus can also affect your gastrointestinal system. It is likely that an acute adenovirus infection, as well as a concomitant right lower lobe pneumonia, was to culprit for most of your symptoms. After antibiotics were stopped on 06/13, you reported no recurrence of fevers. Your vital signs remained stable for 72 hours prior to discharge. Additionally, blood work revealed no elevation of white blood cell count to indicate worsening of infection off antibiotic. For these reasons, we feel that is safe for you to return home at this time. Adenovirus is contagious so long as the individual remains symptomatic (cough, sneeze, etc.). Your symptoms originally developed on 06/08. You did express concern about returning home and getting your sick; we recommend that you wear a surgical mask for the next several days until your symptoms fully resolved. Please maintain proper hand hygiene, and if you are concerns keep a distance of around 6 feet or continue to wear surgical masks until you are 2 weeks out from onset of symptoms on 06/22. We will send the following prescription to your pharmacy: - Benzonatate (i.e. "Tessalon Perles") 100 mg which can be taken up to 3 times daily as needed for cough Prior to discharge, you also expressed concern for decreased strength in your left lower extremity. This was new, and developed over the course of your hospitalization. X-rays taken of your left lower extremity revealed no acute fractures. Initially there was concern that the lumbar puncture earlier in your hospitalization may have affected your left leg. Our neurology team was consulted; however, it is not felt that the lumbar puncture would affect your left leg in this way. We discussed that this might be secondary to physical deconditioning from being in the hospital. At time of discharge, you report that your left leg weakness is improving. We discussed applying for acute rehab versus returning home with home health (PT/OT/nursing), and ultimately decided that home health would be the better option. Our case management associate are currently setting up home health with [facility] nursing; please be on the look out for correspondence in the next 24 to 48 hours. Please also plan to follow-up with your PCP in the next 1 to 2 weeks for a transitional care appointment. If you develop any new or worsening symptoms, such as fever, chills, slurred speech, chest pain, trouble breathing at rest, or if you have any new or worsening concerns, please return to the Emergency Department immediately. It was a pleasure taking care of you. Please reach out with any questions or concerns. Sincerely, The hospital medicine team at [facility] Supervising Physician Co-Signing Physician Notes Attending Attestation & Discharge Note: Chart reviewed, discharge care plan d/w PA Michael Collazo. I agree w/ the parada components of his d/c summary with the following addition -- -probable viral meningitis (CSF cell counts - WBCs 49; CSF protein - 166; CSF BioFire [does not check for adenovirus] was negative; CSF culture negative) 50yo female with h/o CONSTRUCTION AREA MANAGER shunt, recurrent UTI, neurogenic bladder w/ need for self-cathing, spina bifida, HTN, hypothyroidism. Presented with fevers/congestion from home. During the stay ultimately tested positive for adenovirus on Respiratory BioFire. Urine cx grew klebsiella. CT chest showed RLL pneumonia. There was also concern for a RLE cellulitis. She received broad-spectrum IV antibiotics to cover the above bacterial sources of infection. With respect to the CSF results I suspect she probably had adenovirus meningitis based on cell counts (49 WBCs on LP, minimal blood). No specific Rx is needed for this issue. All bacterial studies from the CSF were negative (thus [employer] shunt is without bacterial infection). There was discussion about patient possibly going to acute rehab but she ultimately returned home with PT/OT services. Last documented fever 06/11/25. WBC count was normal at discharge. Adal Nunez MD Total Time Total Time Spent Total Time Spent (In Minutes): 35 Coding Level of Care Code 84078 INP/OBS DISCH >30 MIN Diagnoses Adenovirus infection B34.0 H/O ventricular shunt Recurrent UTI N39.0 Hydrocephalus G91.9 Neurogenic bladder N31.9 Spina bifida of lumbar region with hydrocephalus Q05.2 Presence of hydrocephalus: with hydrocephalus Hypertension I10 Cellulitis of right lower extremity L03.115 Fecal impaction K56.41
--- NOTE | 2025-06-15 09:43 | Neurology Consultation ---
Date of Consultation June 15, 2025 Assessment & Plan (1) Spina bifida: History of Present Illness Attending Physician: Adal Nunez MD History of Present Illness S: pt this morning feeling some improvement with left leg weakness. admission HPI: This is a 50-year-old female with spina bifida, wheelchair-bound, neurogenic bladder for which she self catheterizes, hypertension, GERD, hypothyroidism presents with fever and weakness today. The patient stated that she had some sore throat, cough and stuffy nose yesterday but she has issues with allergies. She also was unable to self catheterize today and so was concerned about a UTI. She denied chest pain, shortness of breath, headache. In the ER, she was noted to have a right foot redness and swelling along with mild drainage which was concerning for cellulitis. She stated that years ago, she had bumped her right pinky toe that caused an open fracture. The opening was sutured up but there remained a gap which often drains. She does not complain of any pain in the right foot because she does not have any sensation in her legs bilaterally. Visibly, she did not notice any difference either. In the ER she was noted to have a fever. She had some screening tests done that revealed unremarkable CBC and BMP, negative COVID and flu. Her urinalysis was suggestive of UTI with positive nitrites trace leuk esterase, no WBCs with 2+ bacteria. Her chest x-ray was negative. Her KUB showed findings suggestive of fecal impaction/constipation. She is being admitted for early sepsis and concern for UTI, right lower extremity cellulitis Allergies Allergy/AdvReac Type Severity Reaction Status Date / Time Penicillins Allergy Mild RASH Verified 03/21/25 13:43 amoxicillin Allergy Unknown RASH Verified 03/21/25 13:43 Home Medications Medication Instructions Recorded Confirmed Type Leg brace repair #1 ea 08/24/21 03/21/25 Rx Thumb Adductor Wrist Splint #1 ea 12/18/21 03/21/25 Rx oxymetazoline 0.05 % nasal spray 2 spray intranasal Q12H PRN 03/18/23 06/08/25 History (Vicks Sinex 12-Hour) Congestion cetirizine 10 mg tablet (Zyrtec) 10 mg PO DAILY #30 tabs 03/27/23 06/08/25 Rx compress.stocking,knee,reg,med #2 ea 06/06/23 03/21/25 Rx Hygeine Wipes #1 ea 07/10/23 03/21/25 Rx Wheelchair (Powered) #1 ea 11/14/23 03/21/25 Rx cholecalciferol (vitamin D3) 10 10 mcg PO BID #180 tabs 11/24/23 06/08/25 Rx mcg (400 unit) tablet ibandronate 150 mg tablet 150 mg PO MONTHLY #3 tabs 07/12/24 06/08/25 Rx bupropion HCl 150 mg 24 hr tablet, 150 mg PO QAM #30 tabs 01/24/25 06/08/25 Rx extended release (Wellbutrin XL) nitrofurantoin macrocrystal 50 mg 50 mg PO DAILY #30 caps 01/24/25 06/08/25 Rx capsule ipratropium bromide 21 mcg (0.03 2 spray intranasal BID #30 mL 02/15/25 06/08/25 Rx %) nasal spray fluticasone propionate 50 2 spray intranasal DAILY #47.4 mL 02/23/25 06/08/25 Rx mcg/actuation nasal spray,suspension (Allergy Relief (fluticasone)) oxybutynin chloride 15 mg 15 mg PO QAM #90 tabs 02/28/25 06/08/25 Rx tablet,extended release 24 hr fluticasone furoate 200 1 inh inhalation DAILY #60 ea 03/03/25 06/08/25 Rx mcg-vilanterol 25 mcg/dose inhalation powder (Breo Ellipta) famotidine 20 mg tablet 20 mg PO BID #180 tabs 03/21/25 06/08/25 Rx lisinopril 20 mg tablet 20 mg PO DAILY #90 tabs 03/21/25 06/08/25 Rx pantoprazole 40 mg tablet,delayed 40 mg PO QAM #90 tabs 03/29/25 06/08/25 Rx release miscellaneous medical supply 1 ea miscellaneous .COMPLEX #1 ea 05/04/25 Rx meloxicam 15 mg tablet 15 mg PO DAILY #30 tabs 05/16/25 06/08/25 Rx albuterol sulfate 90 mcg/actuation 1 - 2 puff inhalation DIRECTED 06/08/25 06/08/25 History aerosol inhaler (Ventolin HFA) PRN shortness of breath or wheezing levothyroxine 88 mcg tablet 88 mcg PO 6XWK 06/08/25 06/08/25 History levothyroxine 88 mcg tablet 176 mcg PO WK 06/08/25 06/08/25 History semaglutide (weight loss) 0.5 0 mg subcut Q7D 06/08/25 06/08/25 History mg/0.5 mL subcutaneous pen injector Patient History Medical History New onset headache History of COVID-19 09/2020, "developed asthma" since Covid infection per patient Asthma well controlled Seizure Single episode at age 12, caused by shunt dysfunction, no issues since Hx of thyroid nodule History of spina bifida Self-catheterizes urinary bladder every 3-4 hours on her own Cholelithiasis Surgical History Hx of bilateral cataract extraction Hx laparoscopic cholecystectomy (03/05/23) Robotic Assisted Laparoscopic Cholecystectomy(Not Applicable) - Hector Han DO, FACS History of colonoscopy Hx of spinal surgery hx spina bifida repair surgery as an S/P ORIF (open reduction internal fixation) fracture R ankle S/P partial thyroidectomy Family History Mother Breast cancer, Onset Age: 57 Grandmother (Maternal) Dementia Father Prostate cancer Sister Breast cancer, Onset Age: 38 Other No family history of adverse response to anesthesia Denies family history of Ovarian cancer Crohn's disease Myocardial infarction Colorectal cancer Ulcerative colitis Social History Smoking Status: Never smoker Second Hand Exposure: No; Do You Dip or Chew Tobacco: No; Hx Alcohol Use: Yes Alcohol type: wine Alcohol Intake Frequency: Monthly or Less Hx Substance Use: No Preferred Language: Tristanian Communication Ability: Effective Visual Impairment: No Limitations Hearing Ability: Normal Plating Foreman Required: No Beliefs That Will Affect Care: None marital status: Current Living Situation: Spouse current occupational status: employed 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) Other Information That Helps Us Care for You: No Feels Safe at Home: Yes Safety Concerns: Feels Safe At This Time Childhood Exposure to Second-Hand Smoke: No Diet: regular Diet Comment: regular caffeine: Yes during the past year weight has: other Dental Care, Regularly: Yes Physical Activity Frequency: 3-4 Times per Week Physical Activity Frequency Comment: [facility] Seatbelt Use: always Sunscreen Use: Yes Assistive Devices: Wheelchair Exam (Neuro) Physical Exam: Neuro: Mental: AOx4, fluent speech, normal comprehension CN: PERRL, Full EOM, symmetric face Motor: No abnormal movements, LLE: 2/5 diffusely, 3+/5 proximally (it is difficult to tell what is baseline vs new). Impression: 50 yo female with known paraplegic and spina bifida and subjective left leg feeling more weak (?). she feels she is improving. I do not feel LP procedure is causing her leg to be weaker. no clear etiology but does not appears to be central. Recommendations: continue supportive care agree with rehab. not much to offer. call again if new question. Chart reviewed I have spent more than 50% educating patient about potential diagnosis and neurological evaluation and coordinating care with patient's treatment team. Total time spent (including chart review and coordination of care): 45 min (this includes chart review). Results & Data Vital Signs (Past 12 Hours) Vital Signs Temp Pulse Resp BP Pulse Ox O2 Del Method 06/15/25 08:17 36.9 C 81 17 138/83 98 Room Air PG Care Time/CCT Total # of Minutes Spent Total Time Spent with Patient: Total time spent is greater than 50% in coordination of care (as documented) at patient's floor/unit and/or counseling patient: Coding Level of Care Code 94202 IN/OBS CONSULT LVL 3,45M Diagnoses Spina bifida Q05.9 Presence of hydrocephalus: unspecified hydrocephalus presence Spinal region: unspecified (1) Spina bifida Presence of hydrocephalus: unspecified hydrocephalus presence Spinal region: unspecified Qualified Code(s): Q05.9 - Spina bifida, unspecified
[2025-06-15] MEDS: CETIRIZINE HCL 10 MG TABLET PO ONE (10:55)
[2025-06-15 15:27] VITALS: BP 152/89; PULSE 92; RESP 18; TEMP 97.9; O2SAT 100
--- NOTE | 2025-06-20 11:14 | Coding Query ---
To promote full compliance with coding requirements relating to patient care, provider participation is requested in all cases of automated manufacturing instructor uncertainty. Please assist us with the question(s) below: Coding Question(s): The diagnosis below was documented in the H&P and progress notes then meaning became unclear after ID consult. Please indicate if it is still a possible diagnosis or ruled out. Physician's Response(s): SEPSIS ( x ) Diagnosed and POA ( ) Diagnosed and not POA ( ) Ruled out ( ) Other (please specify) MTDD
== END 2025-06-15 16:50 | disposition home health service (06) | DRG 871 ==
LOC: SUATTDRO → 3W 14:04 → ED 14:04 → OBSVTOIN 17:52 → 3W 20:42 → SUATTDRO 06-09 13:30